=== PATIENT | male | born 1950 | race Caucasian/White ===

== ENCOUNTER 2018-12-18 14:22 | Inpatient (IN) | payer OTHER ==
[2018-12-18 14:40] VITALS: BMI 28.5
[2018-12-18] MEDS ORDERED: ACETAMINOPHEN 1000 MG/100 ML VIAL (NON FORMULARY) IVPB ONE (14:56)
[2018-12-18] MEDS ORDERED: ACETAMINOPHEN INJECTION 100 ML IVPB ONE (15:11)
--- NOTE | 2018-12-18 15:27 | PDOC ---
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 His GLF was preceded by lightheadedness as reported by the group of witnesses to the patient's brother when he arrived on scene about 20 minutes later. The brother explains that the patient was at [facility] having his normal speech therapy appointment, and as he was leaving he had the fall. The patient denies hitting his head or losing consciousness. He has never fainted before. He has never had a similar episode before. The brother notes that while the patient was laying flat on his back on the ground on his arrival on scene, he was answering questions and otherwise acting normally. The patient and brother deny any recent f/c/n/v/d/c, new focal n/t/w, SCHWARTZ, neck pain, chest pain, palpitations, or other recent symptoms. He is no longer lightheaded or dizzy. He normally ambulated with a 4-point cane or walker , and occasionally uses a wheelchair. Past History - Past Medical History Allergies/Adverse Reactions: Allergies Allergy/AdvReac Type Severity Reaction Status Date / Time No Known Allergies Allergy Verified 12/18/18 14:29 Home Medications: Ambulatory Orders Escitalopram Oxalate [Lexapro -] 10 mg PO HS 10/21/11 Metformin HCl [Glucophage] 1,000 mg PO BID 10/21/11 levETIRAcetam [Keppra Oral Solution -] 500 mg PO BID 10/21/11 Aspirin 81 mg PO DAILY 04/11/14 Atorvastatin Calcium 40 mg PO HS 12/18/18 Ferrous Sulfate [Iron] 325 mg PO ASDIR 12/18/18 Acetaminophen [Tylenol .Regular Strength -] 650 mg PO Q4H PRN tablet 12/22/18 Insulin Sliding Scale [Novolog Vial Sliding Scale -] 1 vial SQ ACHS units 12/22 Anemia: Yes Asthma: No Cancer: No Cardiac Disorders: No CVA: Yes (STROKE-RIGHT SIDED WEAKNESS) COPD: No CHF: No Dementia: No Diabetes: Yes (NIDDM) GI Disorders: Yes (ACID REFLUX BARRETTS ESOPHOGUS HIATAL HERNIA) Disorders: Yes (KIDNEY STONE) HTN: No Hypercholesterolemia: Yes Liver Disease: No Seizures: Yes (NO RECENT ATTACK) Thyroid Disease: No - Surgical History Abdominal Surgery: No Appendectomy: No Cardiac Surgery: No Cholecystectomy: No Lung Surgery: No Neurologic Surgery: No Orthopedic Surgery: No - Suicide/Smoking/Psychosocial Hx Smoking History: Unknown if ever smoked Have you smoked in the past 12 months: No Hx Alcohol Use: Yes (SOCIAL) Drug/Substance Use Hx: No Hx Substance Use Treatment: No Review of Systems - Review of Systems Able to Perform ROS?: Yes Comments:: 12/18/18 15:11 GEN: no fever, chills, malaise, generalized weakness, or weight change HEENT: no ear pain, sore throat, vision change, or eye pain CV: lightheadedness, no chest pain, palpitations, syncope, or edema RESP: no cough, wheezing, or SOB GI: no abdominal pain, nausea, vomiting, diarrhea, constipation, or white/black/ bloody stool : no dysuria, hematuria, incontinence, retention, bleeding, or discharge MSK: right elbow/wrist/forearm/arm/hip/thigh/knee pain, no neck/back pain, no new muscle weakness NEURO: no headache, numbness, tingling, or focal weakness PSYCH: no substance use, no behavior change SKIN: no jaundice, no rash ROS otherwise negative except as noted in HPI *Physical Exam - Vital Signs Last Vital Signs Temp Pulse Resp BP Pulse Ox 98.5 F 76 19 143/95 98 12/18/18 14:31 12/18/18 14:31 12/18/18 14:31 12/18/18 14:31 12/18/18 14:31 - Physical Exam Comments: 12/18/18 15:11 GENERAL: a bit uncomfortable but nontoxic-appearing, A/Ox4, no distress, answers questions appropriately, brother at bedside aids in conversation and providing medical history HEENT: PERRLA, EOMI, moist mucous membranes, mild facial droop stated to be old per baseline NECK/BACK: no midline ttp, no spinal stepoff or deformity, no hematoma, full ROM , neck supple CARDIOVASCULAR: regular rate/rhythm, normal S1S2, no MGR, strong peripheral pulses, capillary refill <2 seconds, extremities wwp, no edema LUNGS/RESPIRATORY: no respiratory distress, CTAB GI/ABDOMEN: symmetric [id number], normoactive BS, soft, no ttp, no midline pulsatile masses : no CVA tenderness EXTREMITIES: RLE slightly shortened and slightly externally rotated compared to contralateral side, pain on passive ROM right elbow, mild right elbow edema, tenderness to palpation diffusely to elbow with lateral>medial aspect, also mild ttp right wrist and pain with ROM, RUE chronic atrophy SKIN: warm and dry, no pallor, no jaundice, no rash, no bruising, no skin breakdown, no cuts, no lesions NEUROLOGICAL: GCS 15, 5/5 strength proximally and distally to LUE and LLE, strength 4/5 RLE and 3/5 RUE stated all per baseline Heart Score/ECG Review #1 12/18/18 16:55 Sinus rhythm, rate 65, with normal axis and intervals, no is chemic ST-T changes ED Treatment Course - LABORATORY CBC & Chemistry Diagram: 12/20/18 07:50 12/20/18 07:50 - RADIOLOGY Radiology Studies Ordered: Category Date Time Status HEAD CT WITHOUT CONTRAST [CT] Stat CT Scan 12/18/18 14:56 Ordered CHEST PA & LAT [RAD] Stat Radiology 12/18/18 14:56 Ordered ELBOW-RIGHT [RAD] Stat Radiology 12/18/18 14:56 Ordered HIP & PELVIS-RIGHT [RAD] Stat Radiology 12/18/18 14:56 Ordered KNEE 2 POS-LEFT [RAD] Stat Radiology 12/18/18 14:56 Ordered SHOULDER-RIGHT [RAD] Stat Radiology 12/18/18 14:56 Ordered WRIST W/HAND-RIGHT* [RAD] Stat Radiology 12/18/18 15:05 Ordered Medical Decision Making - Medical Decision Making 12/18/18 15:28 Elderly patient p/w abrupt transient near-LOC with, followed by spontaneous recovery, consistent with presyncope. Also suffered GLF with subsequent elbow, wrist, hip, and knee pain. Initial Vital Signs Temp Pulse Resp BP Pulse Ox 98.5 F 76 19 143/95 98 12/18/18 14:31 12/18/18 14:31 12/18/18 14:31 12/18/18 14:31 12/18/18 14:31 Exam: As noted in Physical Exam section. DDX for RLE pain IBNLT: hip/pelvis fxr, hip dislocation, sprain/strain, contusion, etc. DDX for RUE pain IBNLT: wrist/elbow fxr, dislocation, sprain/strain, contusion, etc. DDX for lightheadedness resulting in GLF IBNLT: reflex (neurocardiogenic e.g. vasovagal; situational e.g. micturition/post-tussive/post-exercise; carotid sinus hypersensitivity), cardiovascular (arrhythmia e.g. sick sinus syndrome, conduction abnormality e.g. SVT/WPW/Brugada/long QT/ventricular dysrhythmia, structural heart disease e.g. valvular disease/HOCM/left atrial myxoma/CT; PE; cardiac tamponade), orthostatic hypotension (volume depletion e.g. hemorrhage/ vomiting/diarrhea/diuretics; drugs e.g. vasodilators/cpzfr-2-pddvwznu/clonidine/ phenothiazines like Haldol; autonomic failure e.g. spinal cord injury/DM neuropathy/Parkinsons), or other causes not true syncope d/t subsequent neuro deficit (TIA/CVA, SAH, seizure, metabolic/electrolyte derangement e.g. DM/DKA tend to cause gradual slide into unconsciousness), , infection/sepsis/ vitals abnormalities, etc. W/U ordered: XR right hip/pelvis/knee/elbow/wrist, CBCD CMP Cardiac Panel Coags T&S EKG, HCT without contrast, CSCT TX ordered: IV Ofirmev. NPO until further notice. EKG: Reviewed; results as noted in ECG Review section. CXR: Nothing acute CT Head: Nothing acute CT C-Spine: Nothing acute; bone spur at C3-4 XR right hand/wrist: Clenched hand limits study but nothing obvious acute. XR right elbow: proximal ulnar fracture and STS XR right shoulder: Nothing acute XR right hip/pelvis: Nothinc acute XR right knee: Nothing acute Laboratory Tests 12/18/18 12/18/18 12/18/18 15:14 15:14 15:14 WBC 7.6 RBC 3.72 L Hgb 11.8 Hct 35.8 MCV 96.1 H MCH 31.8 MCHC 33.0 RDW 13.6 Plt Count 272 MPV 7.8 Absolute Neuts (auto) 5.4 Neutrophils % 70.5 Lymphocytes % 16.0 Monocytes % 10.3 H Eosinophils % 2.7 Basophils % 0.5 Nucleated RBC % 0 PT with INR 12.90 INR 1.09 Sodium 138 Potassium 4.1 Chloride 106 Carbon Dioxide 25 Anion Gap 7 L BUN 12 Creatinine 0.9 Est GFR (CKD-EPI)AfAm 101.36 Est GFR (CKD-EPI)NonAf 87.45 Random Glucose 216 H Calcium 8.3 L Magnesium 2.0 Total Bilirubin 0.8 AST 11 L ALT 15 Alkaline Phosphatase 67 Creatine Kinase 60 Troponin I < 0.02 Total Protein 6.5 Albumin 3.4 Blood Type Antibody Screen 12/18/18 15:14 WBC RBC Hgb Hct MCV MCH MCHC RDW Plt Count MPV Absolute Neuts (auto) Neutrophils % Lymphocytes % Monocytes % Eosinophils % Basophils % Nucleated RBC % PT with INR INR Sodium Potassium Chloride Carbon Dioxide Anion Gap BUN Creatinine Est GFR (CKD-EPI)AfAm Est GFR (CKD-EPI)NonAf Random Glucose Calcium Magnesium Total Bilirubin AST ALT Alkaline Phosphatase Creatine Kinase Troponin I Total Protein Albumin Blood Type A NEGATIVE Antibody Screen Negative Pt is at high risk given his comorbidities. The Pt is unsafe for discharge at this time. They require further hospital observation, workup, and treatment. I have spoken with Dr. Diaz who requests orthostatic vitals; these are being done now. I have spoken with Ortho ETTA Santiago who requests posterior splint; she and Dr. Wiseman will see him tomorrow. Consult order placed to Ortho. *DC/Admit/Observation/Transfer Diagnosis at time of Disposition: Pre-syncope, Fall from ground level Ulnar fracture Qualifiers: Encounter type: initial encounter Ulna location: proximal ulna Fracture type: closed Fracture morphology: unspecified fracture morphology Laterality: right Qualified Code(s): S52.001A - Unspecified fracture of upper end of right ulna, initial encounter for closed fracture - Discharge Dispostion Condition at time of disposition: Guarded Decision to Admit order: Yes - Referrals - Patient Instructions - Post Discharge Activity
--- NOTE | 2018-12-18 15:41 | PDOC ---
Documentation entered by Obdulia Gerard SCRIBE, acting as scribe for Carito Danielle DO. Carito Danielle DO: This documentation has been prepared by the Moustapha archuleta Nirvannie, SCRIBE, under my direction and personally reviewed by me in its entirety. I confirm that the documentation accurately reflects all work, treatment, procedures, and medical decision making performed by me. Attending Attestation - Resident Resident Name: PedrazaNicole - ED Attending Attestation I have performed the following: I have examined & evaluated the patient, The case was reviewed & discussed with the resident, I agree w/resident's findings & plan - HPI HPI: 12/18/18 15:58 The patient is a 68 year old male, with a significant past medical history of CVA and seizures (1x, on Keppra), who presents to the emergency department s/p episode of presyncope and fall with right sided pain. As per patients brother at bedside, he was at speech therapy yesterday at which time he fell, hurting his right side and hitting his head. Per brother, the facility noted him to be dizzy prior to the fall and upon his arrival the patient was diaphoretic. Patient notes decreased ROM secondary to pain with both active and passive motions. History is limited secondary to patient prior CVA deficits (can only answer yes/no) thus was obtained via brother at bedside. Allergies: NKDA Primary Care Physician: Dr. Wang - Physicial Exam PE: 12/18/18 15:57 Constitutional: Awake, alert, oriented. No acute distress. Head: Normocephalic. Atraumatic Eyes: PERRL. EOMI. Conjunctivae are not pale. ENT: Mucous membranes are moist and intact. Posterior pharynx without exudates or erythema. Uvula midline. Neck: Supple. Full ROM. No lymphadenopathy. Cardiovascular: Regular rate. Regular rhythm. S1, S2 regular. Distal pulses are 2+ and symmetric. Pulmonary/Chest: No evidence of respiratory distress. Clear to auscultation bilaterally No wheezing, rales or rhonchi. Abdominal: Soft and non-distended. There is no tenderness. No rebound, guarding or rigidity. No organomegaly. No palpable masses. Good bowel sounds. Back: No CVA tenderness. Musculoskeletal: No edema. No cyanosis. No clubbing. No calf tenderness. Radial/pedal pulses are intact and 2+ bilaterally Skin: Skin is warm and dry. No petechiae. No purpura. Neurological: At baseline: +Mild responsive an expressive aphasia and slurred speech. RUE strength 2/5. RLE strength 3/5. Right sided facial droop. Alert and oriented to person, place, and time. Cranial nerves II-XII are grossly intact. Strength is grossly symmetric. No sensory deficits. Psychiatric: Good eye contact. Normal interaction, affect and behavior. - Medical Decision Making 12/18/18 15:36 I, Dr. Carito Danielle, DO, attest that this document has been prepared under my direction and personally reviewed by me in its entirety. I further attest, that it accurately reflects all work, treatment, procedures and medical decision -making performed by me. 12/18/18 15:36 a/p: 68yo male with hx of cva in the past, residual r sided weakness with an episode of dizziness and near syncope yesterday -pt was walking out of speech therapy at [place] when he fell, landing on his back and R side -pt with R elbow pain and R hip pain -pt did hit his head, no loc -pt with speech difficulty since his CVA -per the brother, he was clammy and cool after he fell. pt denies davis. no neck or back pain -pt declined evaluation last night and came home, taking tyelnol for pain -pt walks with a 4point cane, but per the bother only on long walks -pt denies cp/sob prior to fall or since the fall -will send labs, ekg, cxr, head ct, elbow xray, pelvis/hip xray 12/18/18 16:18 no acute changes on the head or c spine ct Heart Score/ECG Review - ECG Intrepretation Comment:: 12/18/18 15:35 sinus at 65, lvh, nl axis, t wave inversions III, no acute st/t wave findings
[2018-12-18 16:00] LABS: BASO % 0.5 % (0-2.0); EOS % 2.7 % (0-4.5); HEMATOCRIT 35.8 % (35.4-49); HEMOGLOBIN 11.8 GM/dL (11.7-16.9); MCH 31.8 pg (25.7-33.7); MEAN CELL VOLUME 96.1 fl (80-96); MEAN PLT VOLUME 7.8 fl (7.5-11.1); MONO % 10.3 % (3.8-10.2); NEUT % 70.5 % (42.8-82.8); PLATELET COUNT 272 K/MM3 (134-434); RBC 3.72 M/mm3 (4.00-5.60); RDW 13.6 % (11.9-15.9); WHITE BLOOD COUNT 7.6 K/mm3 (4.0-10.0)
[2018-12-18 16:15] LABS: INR 1.09 (0.83-1.09); PROTHROMBIN TIME (PATIENT) 12.9 SEC (9.7-13.0)
[2018-12-18 16:32] LABS: ALBUMIN 3.4 g/dl (3.4-5.0); ALK PHOS 67 U/L (45-117); ANION GAP 7 MMOL/L (8-16); BILIRUBIN,TOTAL 0.8 mg/dL (0.2-1); BLOOD UREA NITROGEN 12 mg/dL (7-18); CALCIUM 8.3 mg/dL (8.5-10.1); CHLORIDE 106 mmol/L (98-107); CO2 25 mmol/L (21-32); CREATININE 0.9 mg/dL (0.55-1.3); GLUCOSE,RANDOM 216 mg/dL (74-106); POTASSIUM 4.1 mmol/L (3.5-5.1); SGOT/AST 11 U/L (15-37); SGPT/ALT 15 U/L (13-61); SODIUM 138 mmol/L (136-145); TOT PROT 6.5 g/dl (6.4-8.2)
--- NOTE | 2018-12-18 18:16 | HP ---
Admitting History and Physical - Primary Care Physician PCP: Stefania Wang - Admission Chief Complaint: Fell History of Present Illness: Mr Curtis is a very pleasant 68 year old male who comes in with a presyncopal event and fall. He is aphasic and can answer yes/no so majority of the history comes from his brother at bedside. He states that Mr Curtis often becomes dehydrated because he does not like to drink fluids as to prevent excessive urination. Wednesday they were golfing and yesterday Mr Curtis went to [place] and had speech therapy. After leaving he was walking and became lightheaded and fell. He denies LOC or head trauma. He did fall and hit his R elbow. He was evaluated by the staff and found to have low blood pressure. At that time he felt he was well enough to go home so declined ambulance or hospital evaluation. He went to sleep and this morning asked to come to the hospital because he was having R arm pain. He says yes to having R arm pain and indicates his elbow. Otherwise he is without complaint. He denies fevers, chills , current lightheadedness/dizziness, change in vision (has L eye blindness), chest pain, shortness of breath, nausea, vomiting, abdominal pain, diarrhea, constipation, difficulty or pain on urination, or swelling. History Source: Patient, Family Member Limitations to Obtaining History: Clinical Condition - Past Medical History RESEARCH TECH: Yes: CVA (2006- Left middle cerebral artery occulsion) Musculoskeletal: Yes: Other (Right-sided weakness in upper and lower extremity) Endocrine: Yes: Diabetes Mellitus - Past Surgical History Past Surgical History: Yes: None - Smoking History Smoking history: Never smoked Have you smoked in the past 12 months: No - Alcohol/Substance Use Hx Alcohol Use: Yes (SOCIAL) - Social History Usual Living Arrangement: Yes: Other (with family) ADL: Family Assistance History of Recent Travel: No Home Medications - Allergies Allergies/Adverse Reactions: Allergies Allergy/AdvReac Type Severity Reaction Status Date / Time No Known Allergies Allergy Verified 12/18/18 14:29 - Home Medications Home Medications: Ambulatory Orders Escitalopram Oxalate [Lexapro -] 20 mg PO HS 10/21/11 Metformin HCl [Glucophage] 1,000 mg PO BID 10/21/11 levETIRAcetam [Keppra Oral Solution -] 500 mg PO BID 10/21/11 Aspirin 81 mg PO DAILY 04/11/14 Atorvastatin Calcium 40 mg PO HS 12/18/18 Ferrous Sulfate [Iron] 325 mg PO ASDIR 12/18/18 Family Disease History - Family Disease History Family Disease History: CA: Mother (pancreatic), Brother (colon) Review of Systems Findings/Remarks: Full review of systems obtained, as per HPI and otherwise negative Physical Examination Vital Signs: Vital Signs Temperature 36.9 C 12/18/18 14:31 Pulse Rate 65 12/18/18 17:50 Respiratory Rate 19 12/18/18 14:31 Blood Pressure 146/69 12/18/18 17:50 O2 Sat by Pulse Oximetry (%) 98 12/18/18 14:31 Constitutional: Yes: Well Nourished, No Distress, Calm Eyes: Yes: Conjunctiva Clear HENT: Yes: Atraumatic, Normocephalic Cardiovascular: Yes: Regular Rate and Rhythm. No: Gallop, Murmur, Rub Respiratory: Yes: Regular, CTA Bilaterally. No: Rales, Rhonchi, Wheezes Gastrointestinal: Yes: Normal Bowel Sounds, Soft. No: Distention, Tenderness Extremities: Yes: WNL Edema: No Labs: CBC, BMP 12/18/18 15:14 12/18/18 15:14 Imaging - Results Chest X-ray: Image Reviewed X-ray: Image Reviewed Cat Scan: Report Reviewed Problem List - Problems (1) Pre-syncope Assessment/Plan: -with fall -most likely secondary to dehydration -admit to telemetry observation -hydration with IVF -orthostatic vital signs -cardiology consult -ECHO and carotid dopplers -PT consult -plan for discharge tomorrow if improved Code(s): R55 - SYNCOPE AND COLLAPSE (2) Ulnar fracture Assessment/Plan: -orthopedic surgery consulted -await recommendations Code(s): S52.209A - UNSP FRACTURE OF SHAFT OF UNSP ULNA, INIT FOR CLOS FX Qualifiers: Encounter type: initial encounter Ulna location: proximal ulna Fracture type: closed Fracture morphology: unspecified fracture morphology Laterality : right Qualified Code(s): S52.001A - Unspecified fracture of upper end of right ulna, initial encounter for closed fracture (3) Fall from ground level Assessment/Plan: -secondary to presyncope -as above Code(s): W18.30XA - FALL ON SAME LEVEL, UNSPECIFIED, INITIAL ENCOUNTER (4) Diabetes Assessment/Plan: -continue metformin -diabetic diet -FSBS and SSI Code(s): E11.9 - TYPE 2 DIABETES MELLITUS WITHOUT COMPLICATIONS (5) CVA (cerebral vascular accident) Assessment/Plan: -history of with aphasia -deficit unchanged -CT scan reviewed -continue aspirin and keppra Code(s): I63.9 - CEREBRAL INFARCTION, UNSPECIFIED (6) Carotid artery stenosis Assessment/Plan: -100% occlusion per brother at bedside -will obtain carotid ultrasound for syncope Code(s): I65.29 - OCCLUSION AND STENOSIS OF UNSPECIFIED CAROTID ARTERY Qualifiers: Laterality: left Qualified Code(s): I65.22 - Occlusion and stenosis of left carotid artery
[2018-12-18] MEDS: SODIUM CHLORIDE 1,000 ML IV SCH (18:54)
[2018-12-18] MEDS: INSULIN SLIDING SCALE (NOVOLOG) 1 VIAL SQ SCH (23:40)
[2018-12-19] MEDS ORDERED: metFORMIN HCL 500 MG TABLET (FP) ONE (06:15)
[2018-12-19] MEDS ORDERED: INSULIN (NOVOLOG) ASPART 100 UNITS/ML 10ML VIAL ONE ×2 (06:15→06:17)
[2018-12-19] MEDS: INSULIN SLIDING SCALE (NOVOLOG) 1 VIAL SQ SCH ×4 (06:25→21:22)
[2018-12-19] MEDS: metFORMIN HCL 500 MG TABLET (FP) PO SCH ×2 (06:26→17:29)
[2018-12-19 06:59] LABS: BASO % 0.8 % (0-2.0); EOS % 5.5 % (0-4.5); HEMOGLOBIN 11.2 GM/dL (11.7-16.9); MCH 32.3 pg (25.7-33.7); MEAN PLT VOLUME 7.6 fl (7.5-11.1); MONO % 9.2 % (3.8-10.2); NEUT % 67.5 % (42.8-82.8); PLATELET COUNT 266 K/MM3 (134-434); RBC 3.47 M/mm3 (4.00-5.60); RDW 13.6 % (11.9-15.9); WHITE BLOOD COUNT 7.8 K/mm3 (4.0-10.0)
[2018-12-19 07:29] LABS: CALCIUM 7.9 mg/dL (8.5-10.1); CREATININE 0.8 mg/dL (0.55-1.3); MAGNESIUM 1.8 mg/dL (1.8-2.4); PHOSPHOROUS 3.2 mg/dL (2.5-4.9); POTASSIUM 3.8 mmol/L (3.5-5.1)
[2018-12-19] MEDS ORDERED: FERROUS SO4 325 MG TABLET (FP) ONE (07:47)
[2018-12-19] MEDS: FERROUS SO4 325 MG TABLET (FP) PO SCH ×2 (07:57→17:29)
--- NOTE | 2018-12-19 09:17 | CON.CARD ---
Consult Consult Specialty:: cardio - History of Present Illness Chief Complaint: fall History of Present Illness: 68 M with presyncope and fall. pt severely aphasic (can answer yes and no) sec to prior CVA--historyprovided by brother and obtained mostly from him. pt recalls feeling dizzy/LH and falling in hallway outside of speech therapy office at [facility] [place]. he does admit to feeling hot in body at time of sx's. denies LOC. also admits to feeling weakness in R leg at the [place]. brother was not present--arrived 15-20 min later and found brother laying on floor with staff attending to him. they checked bp and told him was low, doesn't know the reading. pt was conscious and appeared NOT to be confused or disoriented. no sz-like activity noted (h/o seizure in past). brother suspects pt wa dehydrated because played golf outside the day before, then went out with friends for dinner, doesn't take much po fluids in. no etoh at all. He hit his R elbow when fell and came to hospital the next day (12/18) b/c of elbow pain. currently feels well denies cp, sob, palpitations brother states pt has known carotid artery occlusion PMH: cva carotid occlusion - Past Medical History PHARMACEUTICAL ANALYST: Yes: CVA (2007- Left middle cerebral artery occulsion) Musculoskeletal: Yes: Other (Right-sided weakness in upper and lower extremity) Endocrine: Yes: Diabetes Mellitus - Past Surgical History Past Surgical History: Yes: None - Alcohol/Substance Use Hx Alcohol Use: Yes (SOCIAL) - Smoking History Smoking history: Never smoked Have you smoked in the past 12 months: No - Social History ADL: Family Assistance History of Recent Travel: No Home Medications - Allergies Allergies/Adverse Reactions: Allergies Allergy/AdvReac Type Severity Reaction Status Date / Time No Known Allergies Allergy Verified 12/18/18 14:29 - Home Medications Home Medications: Ambulatory Orders Escitalopram Oxalate [Lexapro -] 10 mg PO HS 10/21/11 Metformin HCl [Glucophage] 1,000 mg PO BID 10/21/11 levETIRAcetam [Keppra Oral Solution -] 500 mg PO BID 10/21/11 Aspirin 81 mg PO DAILY 04/11/14 Atorvastatin Calcium 40 mg PO HS 12/18/18 Ferrous Sulfate [Iron] 325 mg PO ASDIR 12/18/18 Family Disease History - Family Disease History Family Disease History: CA: Mother (pancreatic), Brother (colon) Review of Systems - Review of Systems Constitutional: denies: Chills, Fever Eyes: denies: Eye Pain HENT: denies: Nasal Congestion Neck: denies: Stiffness Cardiovascular: denies: Palpitations Respiratory: denies: Orthopnea, PND Gastrointestinal: denies: Diarrhea, Rectal Bleeding Genitourinary: denies: Burning, Hematuria Musculoskeletal: denies: Muscle Pain Integumentary: denies: Rash Neurological: denies: Numbness, Seizure, Syncope Endocrine: denies: Excessive Sweating Hematology/Lymphatic: denies: Excessive Bleeding Vital Signs: Vital Signs Temperature 98.2 F 12/19/18 09:00 Pulse Rate 82 12/19/18 09:00 Respiratory Rate 16 12/19/18 09:00 Blood Pressure 142/78 12/19/18 09:00 O2 Sat by Pulse Oximetry (%) 94 L 12/19/18 09:00 Constitutional: Yes: Well Nourished, No Distress Eyes: No: Sclera Icterus HENT: No: Nasal Congestion Neck: No: Decreased ROM Respiratory: Yes: CTA Bilaterally. No: Accessory Muscle Use, Rales, Wheezes Gastrointestinal: Yes: Normal Bowel Sounds. No: Distention, Hepatomegaly, Palpable Mass, Tenderness Cardiovascular: Yes: Regular Rate and Rhythm JVD: No Carotid Bruit: No PMI: Non-Displaced Heart Sounds: Yes: S1, S2. No: Gallop Murmur: No: Systolic Murmur, Diastolic Murmur Musculoskeletal: Yes: Other (No kyphosis) Extremities: No: Cold, Cyanosis Edema: No Peripheral Pulses: 2+ Left Carotid, 2+ Right Carotid, 2+ Left Doralis Pedis, 2+ Right Dorsalis Pedis Integumentary: No: Jaundice Neurological: Yes: Alert. No: Seizure Psychiatric: No: Agitated - Other Data Labs, Other Data: CBC, BMP 12/19/18 05:55 12/19/18 05:55 INR, PTT INR 1.09 (0.83-1.09) 12/18/18 15:14 Troponin, BNP 12/18/18 15:14 Troponin I < 0.02 Troponin, BNP 12/18/18 15:14 Troponin I < 0.02 Laboratory Tests 12/18/18 12/19/18 12/19/18 15:14 05:55 05:55 WBC 7.8 Hgb 11.2 L Plt Count 266 Sodium 139 Potassium 3.8 Carbon Dioxide 24 BUN 11 Creatinine 0.8 AST 11 L ALT 15 Creatine Kinase 60 Troponin I < 0.02 Assessment/Plan MRI/MRA brain 2017: chronic L MCA infarct with encephalomalacia. no flow in L ICA/MCA/production maintenance mechanic communicating artery Carotids here: occluded LICA CT head here: old L MCA infarct, no acute pathology ECG: NSR, normal axis. early R/S transition, inc RBBB. no path q's, no ST-T (no signif change vs prior) CXR: clear lungs/pleura tele: NSR, no events presyncope with fall/injury: -dx'd ulnar fracture here -occurred in upright position when leaving speech therapist office, reportedly low bp noted by staff there. + prodrome of hot/flushing--suspect vasovagal episode predisposed by relative intravasc vol depletion. -not clinically dehydrated on electrolytes here. -normotensive here--check orthostatic BPs -tele benign in ER--cont monitoring x 24 hrs -check echo -await neuro input re: c/o R leg weakness known carotid occlusion (left), prior L MCA stroke: -no acute pathology on imaging here -cont prior home sec prevention regimen (aspirin, statin) -per hospitalist
[2018-12-19] MEDS: PANTOPRAZOLE 40 MG TABLET (FP) PO SCH (10:06)
[2018-12-19] MEDS: levETIRAcetam 500 MG/5 ML ORAL SOLUTION (UNIT-DOSE CUPS) PO SCH ×3 (10:06→21:17)
[2018-12-19] MEDS: ASPIRIN 81 MG CHEWABLE TABLETS PO SCH (10:06)
--- NOTE | 2018-12-19 11:16 | EKG ---
Test Reason : Blood Pressure : / mmHG Vent. Rate : 065 BPM Atrial Rate : 065 BPM P-R Int : 190 ms QRS Dur : 106 ms QT Int : 414 ms P-R-T Axes : 034 -03 015 degrees QTc Int : 430 ms NORMAL SINUS RHYTHM MINIMAL VOLTAGE CRITERIA FOR LVH, MAY BE NORMAL VARIANT BORDERLINE ECG WHEN COMPARED WITH ECG OF 27-NOV-2006 07:55, VENT. RATE HAS DECREASED BY 33 BPM Confirmed by BRIE KLINE, ZLEDA ([id number]) on 12/19/2018 11:16:43 AM Referred By: Confirmed By:ZELDA BAIRD MD
--- NOTE | 2018-12-19 12:17 | PN ---
Physical Exam: SUBJECTIVE: Patient seen and examined resting in bed nad. aafebrile hemodynamically stable, no acute events. unable to stand up or walk with pt. denies severe pain, dizziness, palpitations. OBJECTIVE: Vital Signs Period Temp Pulse Resp BP Sys/Rios Pulse Ox Last 24 Hr 97.6 F-99.3 F 61-82 16-20 142-156/69-95 94-98 GENERAL: The patient is awake, alert, in no acute distress. HEAD: Normal with no signs of trauma. EYES: sclera anicteric, conjunctiva clear. No ptosis. ENT: moist mucous membranes. NECK: supple. LUNGS: Breath sounds equal, clear to auscultation bilaterally HEART: Regular rate and rhythm, S1, S2 ABDOMEN: Soft, nontender, nondistended, normoactive bowel sounds, EXTREMITIES: LUE bandaged, painful proximal ulna NEUROLOGICAL: slurred speech, gait not observed. PSYCH: Normal mood, normal affect. SKIN: Warm, dry Laboratory Results - last 24 hr 12/18/18 12/18/18 12/18/18 15:14 15:14 15:14 WBC 7.6 RBC 3.72 L Hgb 11.8 Hct 35.8 MCV 96.1 H MCH 31.8 MCHC 33.0 RDW 13.6 Plt Count 272 MPV 7.8 Absolute Neuts (auto) 5.4 Neutrophils % 70.5 Lymphocytes % 16.0 Monocytes % 10.3 H Eosinophils % 2.7 Basophils % 0.5 Nucleated RBC % 0 PT with INR 12.90 INR 1.09 Sodium 138 Potassium 4.1 Chloride 106 Carbon Dioxide 25 Anion Gap 7 L BUN 12 Creatinine 0.9 Est GFR (CKD-EPI)AfAm 101.36 Est GFR (CKD-EPI)NonAf 87.45 POC Glucometer Random Glucose 216 H Calcium 8.3 L Phosphorus Magnesium 2.0 Total Bilirubin 0.8 AST 11 L ALT 15 Alkaline Phosphatase 67 Creatine Kinase 60 Troponin I < 0.02 Total Protein 6.5 Albumin 3.4 Blood Type Antibody Screen 12/18/18 12/18/18 12/18/18 15:14 19:24 23:37 WBC RBC Hgb Hct MCV MCH MCHC RDW Plt Count MPV Absolute Neuts (auto) Neutrophils % Lymphocytes % Monocytes % Eosinophils % Basophils % Nucleated RBC % PT with INR INR Sodium Potassium Chloride Carbon Dioxide Anion Gap BUN Creatinine Est GFR (CKD-EPI)AfAm Est GFR (CKD-EPI)NonAf POC Glucometer 183 Random Glucose Calcium Phosphorus Magnesium Total Bilirubin AST ALT Alkaline Phosphatase Creatine Kinase Troponin I Total Protein Albumin Blood Type A NEGATIVE A NEGATIVE Antibody Screen Negative 12/19/18 12/19/18 12/19/18 05:53 05:55 05:55 WBC 7.8 RBC 3.47 L Hgb 11.2 L Hct 33.0 L MCV 95.0 MCH 32.3 MCHC 34.0 RDW 13.6 Plt Count 266 MPV 7.6 Absolute Neuts (auto) 5.3 Neutrophils % 67.5 Lymphocytes % 17.0 Monocytes % 9.2 Eosinophils % 5.5 H D Basophils % 0.8 Nucleated RBC % 0 PT with INR INR Sodium 139 Potassium 3.8 Chloride 105 Carbon Dioxide 24 Anion Gap 9 BUN 11 Creatinine 0.8 Est GFR (CKD-EPI)AfAm 106.38 Est GFR (CKD-EPI)NonAf 91.79 POC Glucometer 207 Random Glucose 211 H Calcium 7.9 L Phosphorus 3.2 Magnesium 1.8 Total Bilirubin AST ALT Alkaline Phosphatase Creatine Kinase Troponin I Total Protein Albumin Blood Type Antibody Screen 12/19/18 11:25 WBC RBC Hgb Hct MCV MCH MCHC RDW Plt Count MPV Absolute Neuts (auto) Neutrophils % Lymphocytes % Monocytes % Eosinophils % Basophils % Nucleated RBC % PT with INR INR Sodium Potassium Chloride Carbon Dioxide Anion Gap BUN Creatinine Est GFR (CKD-EPI)AfAm Est GFR (CKD-EPI)NonAf POC Glucometer 188 Random Glucose Calcium Phosphorus Magnesium Total Bilirubin AST ALT Alkaline Phosphatase Creatine Kinase Troponin I Total Protein Albumin Blood Type Antibody Screen Active Medications Generic Name Dose Route Start Last Admin Trade Name Freq PRN Reason Stop Dose Admin Acetaminophen 650 mg 12/18/18 18:08 Tylenol - PO Q4H PRN PAIN Aspirin 81 mg 12/19/18 10:00 12/19/18 10:06 Asa - PO 81 mg DAILY [facility]ILFRIDO Administration Escitalopram Oxalate 20 mg 12/18/18 22:00 12/19/18 00:00 Lexapro - PO 20 mg HS [facility]FRIDO Administration Ferrous Sulfate 325 mg 12/19/18 08:00 12/19/18 07:57 Feosol - PO 325 mg BIDWM [facility] Administration Sodium Chloride 1,000 mls @ 75 mls/hr 12/18/18 18:15 12/18/18 18:54 Normal Saline - IV 75 mls/hr ASDIR WILFRIDO Administration Insulin Aspart 1 vial 12/18/18 22:00 12/19/18 11:52 Novolog Vial Sliding Scale - SQ Not Given ACHS [facility] Protocol Levetiracetam 500 mg 12/18/18 22:00 12/19/18 10:06 Keppra Oral Solution - PO 500 mg BID WILFRIDO Administration Metformin HCl 1,000 mg 12/19/18 07:00 12/19/18 06:26 Glucophage - PO 1,000 mg BIDAC [facility]O Administration Pantoprazole Sodium 40 mg 12/19/18 10:00 12/19/18 10:06 Protonix - PO 40 mg DAILY WILFRIDO Administration ASSESSMENT/PLAN: This is a 68 yo M with PMH of dehydration due to intentional fluid restriction, NIDDM, 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), SZ (11 years ago now on Keppra), presenting with a presyncopal event and fall preceded by flushing, impact on R elbow, found to be hypotensive shortly after Pre syncopal episode with fall R proximal ulnar fracture Unable to walk NIDDM SZ d/o -most likely vasovagal episode aggravated by dehydration -orthostatic vital signs wnl -hydrated with IV NS @ 75 -Carotid duplex shows occluded L ICA consistent with history of 100% occlusion reported by brother -TTE no significan valvular abnormality, ef wnl -cardio consult appreciated -imaging reviewed; f/u ortho eval; tylenol for pain -unable to walk at this time. continue PT -continue metformin -continue aspirin and keppra -med/surg Problem List - Problems (1) Carotid artery stenosis Code(s): I65.29 - OCCLUSION AND STENOSIS OF UNSPECIFIED CAROTID ARTERY Qualifiers: Laterality: left Qualified Code(s): I65.22 - Occlusion and stenosis of left carotid artery (2) Diabetes Code(s): E11.9 - TYPE 2 DIABETES MELLITUS WITHOUT COMPLICATIONS (3) Fall from ground level Code(s): W18.30XA - FALL ON SAME LEVEL, UNSPECIFIED, INITIAL ENCOUNTER (4) Pre-syncope Code(s): R55 - SYNCOPE AND COLLAPSE (5) Ulnar fracture Code(s): S52.209A - UNSP FRACTURE OF SHAFT OF UNSP ULNA, INIT FOR CLOS FX Qualifiers: Encounter type: initial encounter Ulna location: proximal ulna Fracture type: closed Fracture morphology: unspecified fracture morphology Laterality : right Qualified Code(s): S52.001A - Unspecified fracture of upper end of right ulna, initial encounter for closed fracture Visit type - Emergency Visit Emergency Visit: Yes ED Registration Date: 12/19/18 Care time: The patient presented to the Emergency Department on the above date and was hospitalized for further evaluation of their emergent condition. - New Patient This patient is new to me today: Yes Date on this admission: 12/19/18 - Critical Care Critical Care patient: No - Discharge Referral Referred to [facility] Med P.C[facility] No
--- NOTE | 2018-12-19 13:13 | ECHO ---
Name: WILLIAM KARIMI Exam:Adult Echocardiogram Study Date: 12/19/2018 10:37 AM Age: 68 yrs Reason For Study: SYNCOPE Height: 72 in Weight: 210 lb BSA: 2.2 m2 MMode/2D Measurements & Calculations IVSd: 0.93 cm Ao root diam: 3.9 cm LVIDd: 4.6 cm LA dimension: 2.8 cm LVIDs: 2.8 cm LVPWd: 0.97 cm EDV(Teich): 95.6 ml LVOT diam: 2.8 cm ESV(Teich): 30.7 ml Doppler Measurements & Calculations MV E max ray: 57.7 cm/sec Ao V2 max: 109.9 cm/sec MV A max ray: 100.4 cm/sec Ao max P.8 mmHg MV E/A: 0.57 AI P1/2t: 967.6 msec MV dec time: 0.15 sec JEANNIE(V,D): 5.5 cm2 AI max ray: 256.5 cm/sec LV V1 max P.0 mmHg AI max P.3 mmHg LV V1 max: 99.4 cm/sec AI dec slope: 77.7 cm/sec2 PA V2 max: 85.5 cm/sec Med Peak E' Ray: 5.8 cm/sec PA max P.9 mmHg Med E/e': 10.0 Lat Peak E' Ray: 8.4 cm/sec Lat E/e': 6.9 PI Vmax: 124.9 cm/sec Procedure A complete two-dimensional transthoracic echocardiogram was performed (2D, M-mode, Doppler and color flow Doppler). Left Ventricle The left ventricle is normal in size. Left ventricular systolic function is normal. Ejection Fraction = 60- 65%. Grade I diastolic dysfunction, (abnormal relaxation pattern). Ratio E/E'= 10. No regional wall m otion abnormalities noted. Right Ventricle The right ventricle is normal size. The right ventricular systolic function is normal. Atria The left atrial size is normal. Right atrial size is normal. Mitral Valve The mitral valve is normal in structure and function. There is no mitral regurgitation noted. Tricuspid Valve The tricuspid valve is normal in structure and function. No tricuspid regurgitation. Aortic Valve There is mild aortic sclerosis.;. Mild aortic regurgitation. Pulmonic Valve The pulmonic valve is not well visualized. Mild pulmonic valvular regurgitation. Great Vessels Mild aortic root dilatation. Pericardium/Pleura There is no pericardial effusion. Interpretation Summary The left ventricle is normal in size. Left ventricular systolic function is normal. No regional wall motion abnormalities noted. Ejection Fraction = 60-65%. Grade I diastolic dysfunction, (abnormal relaxation pattern). Ratio E/E'= 10 The right ventricular systolic function is normal. The left atrial size is normal. Right atrial size is normal. There is mild aortic sclerosis. Mild aortic regurgitation. Mild pulmonic valvular regurgitation. Mild aortic root dilatation. There is no pericardial effusion. Rakesh Huggins MD 12/19/2018 01:12 PM
--- NOTE | 2018-12-19 17:13 | PN ---
Teaching Attending Note Name of Resident: Nia Rivas ATTENDING PHYSICIAN STATEMENT I saw and evaluated the patient. I reviewed the resident's note and discussed the case with the resident. I agree with the resident's findings and plan as documented. SUBJECTIVE: difficult to obtain but patient responds yes to pain in his arms. Otherwise says thank you but appears comfortable and not in distress OBJECTIVE: Last Vital Signs Temp Pulse Resp BP Pulse Ox 36.8 C 82 16 142/78 94 L 12/19/18 09:00 12/19/18 09:00 12/19/18 09:00 12/19/18 09:00 12/19/18 09:00 Gen: nad Pulm: ctab w/o w/r/r CV: rrr w/o m/r/g Abd: +bs, s/nt/nd Ext: no c/c/e CBC, BMP 12/19/18 05:55 12/19/18 05:55 ASSESSMENT AND PLAN: (1) Pre-syncope Assessment/Plan: -ECHO and carotid ultrasound performed -case d/w cardiology -does not need telemetry, can downgrade -expected to be discharged, however today patient unable to walk -per brother, yesterday stated he was walking and playing golf -unusual to have such a steep decline -will continue PT -neurology consult -will make inpatient as patient is unsafe for discharge if cannot walk Code(s): R55 - SYNCOPE AND COLLAPSE (2) Ulnar fracture Assessment/Plan: -orthopedic surgery consulted -await recommendations Code(s): S52.209A - UNSP FRACTURE OF SHAFT OF UNSP ULNA, INIT FOR CLOS FX Qualifiers: Encounter type: initial encounter Ulna location: proximal ulna Fracture type: closed Fracture morphology: unspecified fracture morphology Laterality : right Qualified Code(s): S52.001A - Unspecified fracture of upper end of right ulna, initial encounter for closed fracture (3) Fall from ground level Assessment/Plan: -secondary to presyncope -as above Code(s): W18.30XA - FALL ON SAME LEVEL, UNSPECIFIED, INITIAL ENCOUNTER (4) Diabetes Assessment/Plan: -continue metformin -diabetic diet -FSBS and SSI Code(s): E11.9 - TYPE 2 DIABETES MELLITUS WITHOUT COMPLICATIONS (5) CVA (cerebral vascular accident) Assessment/Plan: -history of with aphasia -deficit unchanged -CT scan reviewed -continue aspirin and keppra -neurology consulted Code(s): I63.9 - CEREBRAL INFARCTION, UNSPECIFIED (6) Carotid artery stenosis Assessment/Plan: -100% occlusion per brother at bedside -seen on carotid ultrasound Code(s): I65.29 - OCCLUSION AND STENOSIS OF UNSPECIFIED CAROTID ARTERY Qualifiers: Laterality: left Qualified Code(s): I65.22 - Occlusion and stenosis of left carotid artery Problem List - Problems (1) Pre-syncope Code(s): R55 - SYNCOPE AND COLLAPSE (2) Ulnar fracture Code(s): S52.209A - UNSP FRACTURE OF SHAFT OF UNSP ULNA, INIT FOR CLOS FX Qualifiers: Encounter type: initial encounter Ulna location: proximal ulna Fracture type: closed Fracture morphology: unspecified fracture morphology Laterality : right Qualified Code(s): S52.001A - Unspecified fracture of upper end of right ulna, initial encounter for closed fracture (3) Fall from ground level Code(s): W18.30XA - FALL ON SAME LEVEL, UNSPECIFIED, INITIAL ENCOUNTER (4) Diabetes Code(s): E11.9 - TYPE 2 DIABETES MELLITUS WITHOUT COMPLICATIONS (5) CVA (cerebral vascular accident) Code(s): I63.9 - CEREBRAL INFARCTION, UNSPECIFIED (6) Carotid artery stenosis Code(s): I65.29 - OCCLUSION AND STENOSIS OF UNSPECIFIED CAROTID ARTERY Qualifiers: Laterality: left Qualified Code(s): I65.22 - Occlusion and stenosis of left carotid artery
--- NOTE | 2018-12-19 18:30 | PN ---
Progress Note (short form) - Note Progress Note: 68 yo M with PMHx of CVA in 2006 and seizures who presented to ED s/p presyncopal episode where he fell onto his right elbow. Patient is known to have deficits of right arm and was unable to catch his fall. History obtained from brother at bedside as patient has limited communication secondary to prior CVA deficits, only responding in yes or no answers. Patient in posterior splint at time of evaluation. Last Vital Signs Temp Pulse Resp BP Pulse Ox 98.2 F 82 16 142/78 94 L 12/19/18 09:00 12/19/18 09:00 12/19/18 09:00 12/19/18 09:00 12/19/18 09:00 PE: RUE Placed in posterior splint Tenderness about the olecranon NVI Cap refill intact Abnormal Lab Results 12/19/18 12/19/18 05:55 05:55 RBC 3.47 L Hgb 11.2 L Hct 33.0 L Eosinophils % 5.5 H D Random Glucose 211 H Calcium 7.9 L A: Right olecranon fracture P: ED XR show minimally displaced transverse olecranon fracture Discussed surgical vs nonsurgical options with patient and his brother Pain control Continue posterior splint Will f/u outpatient for repeat XR to check stability of alignment and determine next steps
[2018-12-19] MEDS: ESCITALOPRAM OXALATE 20 MG TABLET (FP) PO SCH ×2 (21:17)
[2018-12-19] MEDS: ACETAMINOPHEN 325 MG TABLET (FP) PO PRN (21:21)
[2018-12-20] MEDS: INSULIN SLIDING SCALE (NOVOLOG) 1 VIAL SQ SCH ×4 (06:09→21:15)
[2018-12-20] MEDS: metFORMIN HCL 500 MG TABLET (FP) PO SCH ×2 (06:14→17:38)
[2018-12-20] MEDS: SODIUM CHLORIDE 1,000 ML IV SCH ×2 (06:23→21:16)
--- NOTE | 2018-12-20 07:59 | PN ---
Physical Exam: SUBJECTIVE: Patient seen and examined resting in bed nad. aafebrile hemodynamically stable, no acute events. unable to stand up or walk with pt. confirms he has pain in RLE especially with weight bearing. denies dizziness, palpitations. OBJECTIVE: Vital Signs Period Temp Pulse Resp BP Sys/Rios Pulse Ox Last 24 Hr 98.2 F-99.0 F 63-82 16-20 142-148/78-86 94-96 GENERAL: The patient is awake, alert, in no acute distress. HEAD: Normal with no signs of trauma. EYES: sclera anicteric, conjunctiva clear. No ptosis. ENT: moist mucous membranes. NECK: supple. LUNGS: Breath sounds equal, clear to auscultation bilaterally HEART: Regular rate and rhythm, S1, S2 ABDOMEN: Soft, nontender, nondistended, normoactive bowel sounds, EXTREMITIES: LUE bandaged, painful proximal ulna NEUROLOGICAL: slurred speech, gait not observed. PSYCH: Normal mood, normal affect. SKIN: Warm, dry Laboratory Results - last 24 hr 12/19/18 12/19/18 12/19/18 11:25 17:27 21:19 POC Glucometer 188 206 151 12/20/18 05:34 POC Glucometer 181 Active Medications Generic Name Dose Route Start Last Admin Trade Name Freq PRN Reason Stop Dose Admin Acetaminophen 650 mg 12/18/18 18:08 12/19/18 21:21 Tylenol - PO 650 mg Q4H PRN Administration PAIN Aspirin 81 mg 12/19/18 10:00 12/19/18 10:06 Asa - PO 81 mg DAILY WILFRIDO Administration Escitalopram Oxalate 20 mg 12/18/18 22:00 12/19/18 21:17 Lexapro - PO 20 mg HS WILFRIDO Administration Ferrous Sulfate 325 mg 12/19/18 08:00 12/19/18 17:29 Feosol - PO 325 mg BIDWM WILFRIDO Administration Sodium Chloride 1,000 mls @ 75 mls/hr 12/18/18 18:15 12/20/18 06:23 Normal Saline - IV 75 mls/hr ASDIR WILFRIDO Administration Insulin Aspart 1 vial 12/18/18 22:00 12/20/18 06:09 Novolog Vial Sliding Scale - SQ Not Given ACHS [facility] Protocol Levetiracetam 500 mg 12/18/18 22:00 12/19/18 21:17 Keppra Oral Solution - PO 500 mg BID WILFRIDO Administration Metformin HCl 1,000 mg 12/19/18 07:00 12/20/18 06:14 Glucophage - PO 1,000 mg BIDAC WILFRIDO Administration Pantoprazole Sodium 40 mg 12/19/18 10:00 12/19/18 10:06 Protonix - PO 40 mg DAILY WILFRIDO Administration ASSESSMENT/PLAN: This is a 68 yo M with PMH of dehydration due to intentional fluid restriction, NIDDM, 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), SZ (11 years ago now on Keppra), presenting with a presyncopal event and fall preceded by flushing, impact on R elbow, found to be hypotensive shortly after Pre syncopal episode with fall R proximal ulnar fracture Unable to walk NIDDM SZ d/o -most likely vasovagal episode aggravated by dehydration -orthostatic vital signs wnl -hydrated with IV NS @ 75 -Carotid duplex shows occluded L ICA consistent with history of 100% occlusion reported by brother -TTE no significan valvular abnormality, ef wnl -cardio consult appreciated -imaging reviewed; tylenol for pain -ortho recommends posterior splint and outpatient f/u with repeat xray to appreciate stability/alignment -unable to walk at this time likley due to pain from fall. continue PT -f/u RLE CT and CT lumbar spine to r/o fracture, nerve impingement -continue metformin -continue aspirin and keppra -neuro consult appreciated: neurologically stable Problem List - Problems (1) Carotid artery stenosis Code(s): I65.29 - OCCLUSION AND STENOSIS OF UNSPECIFIED CAROTID ARTERY Qualifiers: Laterality: left Qualified Code(s): I65.22 - Occlusion and stenosis of left carotid artery (2) Diabetes Code(s): E11.9 - TYPE 2 DIABETES MELLITUS WITHOUT COMPLICATIONS (3) Fall from ground level Code(s): W18.30XA - FALL ON SAME LEVEL, UNSPECIFIED, INITIAL ENCOUNTER (4) Pre-syncope Code(s): R55 - SYNCOPE AND COLLAPSE (5) Ulnar fracture Code(s): S52.209A - UNSP FRACTURE OF SHAFT OF UNSP ULNA, INIT FOR CLOS FX Qualifiers: Encounter type: initial encounter Ulna location: proximal ulna Fracture type: closed Fracture morphology: unspecified fracture morphology Laterality : right Qualified Code(s): S52.001A - Unspecified fracture of upper end of right ulna, initial encounter for closed fracture Visit type - Emergency Visit Emergency Visit: Yes ED Registration Date: 12/19/18 Care time: The patient presented to the Emergency Department on the above date and was hospitalized for further evaluation of their emergent condition. - New Patient This patient is new to me today: No - Critical Care Critical Care patient: No - Discharge Referral Referred to [facility] Med [facility] No
[2018-12-20 08:25] LABS: HEMATOCRIT 33.5 % (35.4-49); HEMOGLOBIN 11.3 GM/dL (11.7-16.9); MCH 32.3 pg (25.7-33.7); MCHC 33.8 g/dl (32.0-35.9); MEAN CELL VOLUME 95.5 fl (80-96); MEAN PLT VOLUME 7.5 fl (7.5-11.1); PLATELET COUNT 261 K/MM3 (134-434); RDW 13.5 % (11.9-15.9); WHITE BLOOD COUNT 7.9 K/mm3 (4.0-10.0)
[2018-12-20] MEDS: FERROUS SO4 325 MG TABLET (FP) PO SCH ×2 (08:27→17:36)
[2018-12-20 08:44] LABS: CALCIUM 8.3 mg/dL (8.5-10.1); CREATININE 0.8 mg/dL (0.55-1.3); POTASSIUM 3.9 mmol/L (3.5-5.1)
--- NOTE | 2018-12-20 09:04 | CONSULT ---
Consult - text type - Consultation Consultation Note: Neurology Chief Complaint: Fell History of Present Illness: 68 year old male who comes in with a presyncopal event and fall. He is aphasic at baseline from prior CVA and mostly responds with yes. Notes, reviewed reportedly patient becomes dehydrated because he does not like to drink fluids as to prevent excessive urination. Wednesday, he and his brother were golfing and day prior to admission he went to [facility] and had speech therapy. After leaving he was walking and became lightheaded and fell. He denies LOC or head trauma. He did fall and hit his R elbow. He was evaluated by the staff and found to have low blood pressure. At that time he felt he was well enough to go home so declined ambulance or hospital evaluation. He went to sleep and this morning asked to come to the hospital because he was having R arm pain. He said yes to having R arm pain and indicated his elbow. He denied fevers, chills, current lightheadedness/dizziness, change in vision (has L eye blindness), chest pain, shortness of breath, nausea, vomiting, abdominal pain, diarrhea, constipation, difficulty or pain on urination, or swelling. He was admitted for further evaluation. CT head completed and demonstrated previous L MCA infarct, consistent with his aphasia. Echo completed and reviewed. Neurologically stable at this time. Getting IV hydration. 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) Musculoskeletal: Yes: Other (Right-sided weakness in upper and lower extremity) Endocrine: Yes: Diabetes Mellitus - Past Surgical History Past Surgical History: Yes: None - Smoking History Smoking history: Never smoked Have you smoked in the past 12 months: No - Alcohol/Substance Use Hx Alcohol Use: Yes (SOCIAL) - Social History Usual Living Arrangement: Yes: Other (with family) ADL: Family Assistance History of Recent Travel: No Home Medications - Allergies Allergies/Adverse Reactions: Allergies Allergy/AdvReac Type Severity Reaction Status Date / Time No Known Allergies Allergy Verified 12/18/18 14:29 - Home Medications Home Medications: Ambulatory Orders Escitalopram Oxalate [Lexapro -] 20 mg PO HS 10/21/11 Metformin HCl [Glucophage] 1,000 mg PO BID 10/21/11 levETIRAcetam [Keppra Oral Solution -] 500 mg PO BID 10/21/11 Aspirin 81 mg PO DAILY 04/11/14 Atorvastatin Calcium 40 mg PO HS 12/18/18 Ferrous Sulfate [Iron] 325 mg PO ASDIR 12/18/18 Family Disease History - Family Disease History Family Disease History: CA: Mother (pancreatic), Brother (colon) Review of Systems Findings/Remarks: Full review of systems obtained, as per HPI and otherwise negative Physical Examination Vital Signs: Vital Signs Temperature 36.9 C 12/18/18 14:31 Pulse Rate 65 12/18/18 17:50 Respiratory Rate 19 12/18/18 14:31 Blood Pressure 146/69 12/18/18 17:50 O2 Sat by Pulse Oximetry (%) 98 12/18/18 14:31 Constitutional: Yes: Well Nourished, No Distress, Calm Eyes: Yes: Conjunctiva Clear HENT: Yes: Atraumatic, Normocephalic Cardiovascular: Yes: Regular Rate and Rhythm. No: Gallop, Murmur, Rub Respiratory: Yes: Regular, CTA Bilaterally. No: Rales, Rhonchi, Wheezes Gastrointestinal: Yes: Normal Bowel Sounds, Soft. No: Distention, Tenderness Extremities: Yes: WNL Edema: No Neuro: Aphasic, RUE and RLE 4//5, sensory intact, gait deferred CBCD WBC 7.9 K/mm3 (4.0-10.0) 12/20/18 07:50 RBC 3.50 M/mm3 (4.00-5.60) L 12/20/18 07:50 Hgb 11.3 GM/dL (11.7-16.9) L 12/20/18 07:50 Hct 33.5 % (35.4-49) L 12/20/18 07:50 MCV 95.5 fl (80-96) 12/20/18 07:50 MCHC 33.8 g/dl (32.0-35.9) 12/20/18 07:50 RDW 13.5 % (11.9-15.9) 12/20/18 07:50 Plt Count 261 K/MM3 (134-434) 12/20/18 07:50 MPV 7.5 fl (7.5-11.1) 12/20/18 07:50 CMP Sodium 138 mmol/L (136-145) 12/20/18 07:50 Potassium 3.9 mmol/L (3.5-5.1) 12/20/18 07:50 Chloride 106 mmol/L (98-107) 12/20/18 07:50 Carbon Dioxide 25 mmol/L (21-32) 12/20/18 07:50 Anion Gap 8 MMOL/L (8-16) 12/20/18 07:50 BUN 14 mg/dL (7-18) 12/20/18 07:50 Creatinine 0.8 mg/dL (0.55-1.3) 12/20/18 07:50 Random Glucose 185 mg/dL (74-106) H 12/20/18 07:50 Calcium 8.3 mg/dL (8.5-10.1) L 12/20/18 07:50 Total Bilirubin 0.8 mg/dL (0.2-1) 12/18/18 15:14 AST 11 U/L (15-37) L 12/18/18 15:14 ALT 15 U/L (13-61) 12/18/18 15:14 Alkaline Phosphatase 67 U/L (45-117) 12/18/18 15:14 Total Protein 6.5 g/dl (6.4-8.2) 12/18/18 15:14 Albumin 3.4 g/dl (3.4-5.0) 12/18/18 15:14 CARDIAC ENZYMES Creatine Kinase 60 U/L (26-308) 12/18/18 15:14 Troponin I < 0.02 ng/ml (0.00-0.05) 12/18/18 15:14 Problem List 68 year old male who comes in with a presyncopal event and fall. He is aphasic at baseline from prior CVA and mostly responds with yes. Notes, reviewed reportedly patient becomes dehydrated because he does not like to drink fluids as to prevent excessive urination. Wednesday, he and his brother were golfing and day prior to admission he went to [facility] and had speech therapy. After leaving he was walking and became lightheaded and fell. He denies LOC or head trauma. He did fall and hit his R elbow. He was evaluated by the staff and found to have low blood pressure. At that time he felt he was well enough to go home so declined ambulance or hospital evaluation. He went to sleep and this morning asked to come to the hospital because he was having R arm pain. He said yes to having R arm pain and indicated his elbow. He denied fevers, chills, current lightheadedness/dizziness, change in vision (has L eye blindness), chest pain, shortness of breath, nausea, vomiting, abdominal pain, diarrhea, constipation, difficulty or pain on urination, or swelling. He was admitted for further evaluation. CT head completed and demonstrated previous L MCA infarct, consistent with his aphasia. Echo completed and reviewed. Neurologically stable at this time. Getting IV hydration. Continue workup/mgmt for syncope. Carotid dopplers pending, previously with occlusion, consider vascular follow up. Orthostatics, hydration. Ortho follow up for ulnar fracture. Monitor glucose, optimize DM, can continue metformin. Can continue ASA 81, no need to change antiplatelet.
[2018-12-20] MEDS: ASPIRIN 81 MG CHEWABLE TABLETS PO SCH (10:11)
[2018-12-20] MEDS: levETIRAcetam 500 MG/5 ML ORAL SOLUTION (UNIT-DOSE CUPS) PO SCH ×2 (10:11→21:14)
[2018-12-20] MEDS: PANTOPRAZOLE 40 MG TABLET (FP) PO SCH (10:11)
[2018-12-20] MEDS ORDERED: INSULIN (NOVOLOG) ASPART 100 UNITS/ML 10ML VIAL ONE ×2 (11:08→21:13)
[2018-12-20] MEDS: ACETAMINOPHEN 325 MG TABLET (FP) PO PRN (14:01)
--- NOTE | 2018-12-20 15:22 | PN ---
Progress Note (short form) - Note Progress Note: s: aphasic, appears comfortable, no overnight events Current Medications Generic Name Dose Route Start Last Admin Trade Name Freq PRN Reason Stop Dose Admin Acetaminophen 650 mg 12/18/18 18:08 12/20/18 14:01 Tylenol - PO 650 mg Q4H PRN Administration PAIN Aspirin 81 mg 12/19/18 10:00 12/20/18 10:11 Asa - PO 81 mg DAILY WILFRIDO Administration Atorvastatin Calcium 40 mg 12/20/18 22:00 Lipitor - PO HS WILFRIDO Escitalopram Oxalate 20 mg 12/18/18 22:00 12/19/18 21:17 Lexapro - PO 20 mg HS WILFRIDO Administration Ferrous Sulfate 325 mg 12/19/18 08:00 12/20/18 08:27 Feosol - PO 325 mg BIDWM WILFRIDO Administration Sodium Chloride 1,000 mls @ 75 mls/hr 12/18/18 18:15 12/20/18 06:23 Normal Saline - IV 75 mls/hr ASDIR WILFRIDO Administration Insulin Aspart 1 vial 12/18/18 22:00 12/20/18 11:13 Novolog Vial Sliding Scale - SQ 4 units ACHS WILFRIDO Administration Protocol Levetiracetam 500 mg 12/18/18 22:00 12/20/18 10:11 Keppra Oral Solution - PO 500 mg BID WILFRIDO Administration Metformin HCl 1,000 mg 12/19/18 07:00 12/20/18 06:14 Glucophage - PO 1,000 mg BIDAC WILFRIDO Administration Pantoprazole Sodium 40 mg 12/19/18 10:00 12/20/18 10:11 Protonix - PO 40 mg DAILY WILFRIDO Administration Vital Signs Period Temp Pulse Resp BP Sys/Rios Pulse Ox Last 24 Hr 97.6 F-99.0 F 63-80 17-20 116-148/69-86 94-96 Constitutional: Yes: Well Nourished, No Distress Eyes: No: Sclera Icterus Respiratory: Yes: CTA Bilaterally. No: Accessory Muscle Use, Rales, Wheezes Gastrointestinal: Yes: Normal Bowel Sounds. No: Distention, Hepatomegaly, Palpable Mass, Tenderness Cardiovascular: Yes: Regular Rate and Rhythm JVD: No Heart Sounds: Yes: S1, S2. No: Gallop Murmur: No: Systolic Murmur, Diastolic Murmur Extremities: No: Cold, Cyanosis Edema: No Integumentary: No: Jaundice diaphoresis Neurological: Yes: Alert. No: Seizure Psychiatric: No: Agitated - Other Data Labs, Other Data: CBC, BMP 12/20/18 07:50 12/20/18 07:50 Assessment/Plan MRI/MRA brain 2017: chronic L MCA infarct with encephalomalacia. 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 early R/S transition, inc RBBB. no path q's, no ST-T (no signif change vs prior) CXR: clear lungs/pleura echo 12/2018: nl lv/rv, mild ar, mild pr, mild ao root dil presyncope with fall/injury: -dx'd ulnar fracture here -occurred in upright position when leaving speech therapist office, reportedly low bp noted by staff there. + prodrome of hot/flushing--suspect vasovagal episode predisposed by relative intravasc vol depletion. -not clinically dehydrated on electrolytes here. -normotensive here -tele and echo unremarkable here -neuro following known carotid occlusion (left), prior L MCA stroke: -no acute pathology on imaging here -cont prior home sec prevention regimen (aspirin, statin) -per hospitalist
--- NOTE | 2018-12-20 16:49 | PN ---
Teaching Attending Note Name of Resident: Nia Rivas ATTENDING PHYSICIAN STATEMENT I saw and evaluated the patient. I reviewed the resident's note and discussed the case with the resident. I agree with the resident's findings and plan as documented. SUBJECTIVE: patient pleasant but cannot obtain subjective. Brother at bedside, very persuaded that lipitor is cause of weakness OBJECTIVE: Last Vital Signs Temp Pulse Resp BP Pulse Ox 36.4 C 71 17 116/69 96 12/20/18 14:00 12/20/18 14:00 12/20/18 14:00 12/20/18 14:00 12/19/18 23:08 Gen: nad Pulm: ctab w/o w/r/r CV: rrr w/o m/r/g Abd: +bs, s/nt/nd Ext: no c/c/e, pain with palpation of R thigh CBC, BMP 12/20/18 07:50 12/20/18 07:50 ASSESSMENT AND PLAN: (1) Pre-syncope Assessment/Plan: -? if pre-syncope or fall -work up negative -appreciate cardiology assistance Code(s): R55 - SYNCOPE AND COLLAPSE (2) Ulnar fracture Assessment/Plan: -orthopedic surgery consulted -conservative management at this time Code(s): S52.209A - UNSP FRACTURE OF SHAFT OF UNSP ULNA, INIT FOR CLOS FX Qualifiers: Encounter type: initial encounter Ulna location: proximal ulna Fracture type: closed Fracture morphology: unspecified fracture morphology Laterality : right Qualified Code(s): S52.001A - Unspecified fracture of upper end of right ulna, initial encounter for closed fracture (3) Fall from ground level Assessment/Plan: -? if mechanical -now patient with difficulty walking secondary to pain -will obtain CT scan of lumbar spine and RLE -continue PT -brother convinced that lipitor is contributing -explained that it is a possibility but normally do not see ACUTE weakness from lipitor -also cpk and lfts are normal -risk of stopping lipitor outweigh benefit of it possibly contributing unless evidence is found to the contrary Code(s): W18.30XA - FALL ON SAME LEVEL, UNSPECIFIED, INITIAL ENCOUNTER (4) Diabetes Assessment/Plan: -continue metformin -diabetic diet -FSBS and SSI Code(s): E11.9 - TYPE 2 DIABETES MELLITUS WITHOUT COMPLICATIONS (5) CVA (cerebral vascular accident) Assessment/Plan: -history of with aphasia -deficit unchanged -CT scan reviewed -continue aspirin and keppra -case d/w Dr Candelario Code(s): I63.9 - CEREBRAL INFARCTION, UNSPECIFIED (6) Carotid artery stenosis Assessment/Plan: -100% occlusion per brother at bedside -seen on carotid ultrasound Code(s): I65.29 - OCCLUSION AND STENOSIS OF UNSPECIFIED CAROTID ARTERY Qualifiers: Laterality: left Qualified Code(s): I65.22 - Occlusion and stenosis of left carotid artery Problem List - Problems (1) Pre-syncope Code(s): R55 - SYNCOPE AND COLLAPSE (2) Ulnar fracture Code(s): S52.209A - UNSP FRACTURE OF SHAFT OF UNSP ULNA, INIT FOR CLOS FX Qualifiers: Encounter type: initial encounter Ulna location: proximal ulna Fracture type: closed Fracture morphology: unspecified fracture morphology Laterality : right Qualified Code(s): S52.001A - Unspecified fracture of upper end of right ulna, initial encounter for closed fracture (3) Fall from ground level Code(s): W18.30XA - FALL ON SAME LEVEL, UNSPECIFIED, INITIAL ENCOUNTER (4) Diabetes Code(s): E11.9 - TYPE 2 DIABETES MELLITUS WITHOUT COMPLICATIONS (5) CVA (cerebral vascular accident) Code(s): I63.9 - CEREBRAL INFARCTION, UNSPECIFIED (6) Carotid artery stenosis Code(s): I65.29 - OCCLUSION AND STENOSIS OF UNSPECIFIED CAROTID ARTERY Qualifiers: Laterality: left Qualified Code(s): I65.22 - Occlusion and stenosis of left carotid artery
[2018-12-20] MEDS: ESCITALOPRAM OXALATE 20 MG TABLET (FP) PO SCH (21:14)
[2018-12-20] MEDS: ATORVASTATIN CA 40 MG TABLET (FP) PO SCH (21:14)
[2018-12-21] MEDS: metFORMIN HCL 500 MG TABLET (FP) PO SCH ×2 (06:43→16:50)
[2018-12-21] MEDS: INSULIN SLIDING SCALE (NOVOLOG) 1 VIAL SQ SCH ×4 (06:47→21:42)
--- NOTE | 2018-12-21 07:52 | PN ---
Physical Exam: SUBJECTIVE: Patient seen and examined resting in bed nad. aafebrile hemodynamically stable, no acute events. unable to stand up or walk with pt. still has pain in RLE especially with weight bearing. denies dizziness, palpitations. OBJECTIVE: Vital Signs Period Temp Pulse Resp BP Sys/Rios Pulse Ox Last 24 Hr 97.6 F-99.4 F 67-71 17-19 116-146/66-79 98-98 GENERAL: The patient is awake, alert, in no acute distress. HEAD: Normal with no signs of trauma. EYES: sclera anicteric, conjunctiva clear. No ptosis. ENT: moist mucous membranes. NECK: supple. LUNGS: Breath sounds equal, clear to auscultation bilaterally HEART: Regular rate and rhythm, S1, S2 ABDOMEN: Soft, nontender, nondistended, normoactive bowel sounds, EXTREMITIES: LUE bandaged, painful proximal ulna NEUROLOGICAL: slurred speech, gait not observed. PSYCH: Normal mood, normal affect. SKIN: Warm, dry Laboratory Results - last 24 hr 12/20/18 12/20/18 12/20/18 07:50 07:50 11:12 WBC 7.9 RBC 3.50 L Hgb 11.3 L Hct 33.5 L MCV 95.5 MCH 32.3 MCHC 33.8 RDW 13.5 Plt Count 261 MPV 7.5 Sodium 138 Potassium 3.9 Chloride 106 Carbon Dioxide 25 Anion Gap 8 BUN 14 Creatinine 0.8 Est GFR (CKD-EPI)AfAm 106.38 Est GFR (CKD-EPI)NonAf 91.79 POC Glucometer 270 Random Glucose 185 H Calcium 8.3 L Phosphorus 3.0 Magnesium 2.0 12/20/18 12/20/18 12/21/18 17:35 20:59 05:44 WBC RBC Hgb Hct MCV MCH MCHC RDW Plt Count MPV Sodium Potassium Chloride Carbon Dioxide Anion Gap BUN Creatinine Est GFR (CKD-EPI)AfAm Est GFR (CKD-EPI)NonAf POC Glucometer 172 213 194 Random Glucose Calcium Phosphorus Magnesium Active Medications Generic Name Dose Route Start Last Admin Trade Name Freq PRN Reason Stop Dose Admin Acetaminophen 650 mg 12/18/18 18:08 12/20/18 14:01 Tylenol - PO 650 mg Q4H PRN Administration PAIN Aspirin 81 mg 12/19/18 10:00 12/20/18 10:11 Asa - PO 81 mg DAILY WILFRIDO Administration Atorvastatin Calcium 40 mg 12/20/18 22:00 12/20/18 21:14 Lipitor - PO 40 mg HS WILFRIDO Administration Escitalopram Oxalate 20 mg 12/18/18 22:00 12/20/18 21:14 Lexapro - PO 20 mg HS WILFRIDO Administration Ferrous Sulfate 325 mg 12/19/18 08:00 12/20/18 17:36 Feosol - PO 325 mg BIDWM WILFRIDO Administration Sodium Chloride 1,000 mls @ 75 mls/hr 12/18/18 18:15 12/20/18 21:16 Normal Saline - IV 75 mls/hr ASDIR WILFRIDO Administration Insulin Aspart 1 vial 12/18/18 22:00 12/21/18 06:47 Novolog Vial Sliding Scale - SQ Not Given ACHS WILFRIDO Protocol Levetiracetam 500 mg 12/18/18 22:00 12/20/18 21:14 Keppra Oral Solution - PO 500 mg BID WILFRIDO Administration Metformin HCl 1,000 mg 12/19/18 07:00 12/21/18 06:43 Glucophage - PO 1,000 mg BIDAC WILFRIDO Administration Pantoprazole Sodium 40 mg 12/19/18 10:00 12/20/18 10:11 Protonix - PO 40 mg DAILY WILFRIDO Administration ASSESSMENT/PLAN: This is a 68 yo M with PMH of dehydration due to intentional fluid restriction, NIDDM, 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), SZ (11 years ago now on Keppra), presenting with a presyncopal event and fall preceded by flushing, impact on R elbow, found to be hypotensive shortly after Pre syncopal episode with fall R proximal ulnar fracture Unable to walk due to RLE pain NIDDM SZ d/o -most likely vasovagal episode aggravated by dehydration (was found to be transiently hypotensive with flushing) -orthostatic vital signs wnl -hydrated with IV NS @ 75 -Carotid duplex shows occluded L ICA consistent with history of 100% occlusion reported by brother, no intervention warranted -TTE no significan valvular abnormality, ef wnl -cardio consult appreciated -imaging reviewed; tylenol for pain -ortho recommends posterior splint and outpatient f/u with repeat xray to appreciate stability/alignment -unable to walk at this time likely due to pain from fall. unable to weight bare in RLE or fully extend R knee. continue PT -CT lumbar spine unremarkable -RLE CT R nondisplaced acetabular fracture. -R elbow xray no change in alignment -f/u ortho eval for further recs -continue metformin -continue aspirin and keppra -neuro consult appreciated: neurologically stable -plan to dc tomorrow to rehab,. Problem List - Problems (1) Carotid artery stenosis Code(s): I65.29 - OCCLUSION AND STENOSIS OF UNSPECIFIED CAROTID ARTERY Qualifiers: Laterality: left Qualified Code(s): I65.22 - Occlusion and stenosis of left carotid artery (2) Diabetes Code(s): E11.9 - TYPE 2 DIABETES MELLITUS WITHOUT COMPLICATIONS (3) Fall from ground level Code(s): W18.30XA - FALL ON SAME LEVEL, UNSPECIFIED, INITIAL ENCOUNTER (4) Pre-syncope Code(s): R55 - SYNCOPE AND COLLAPSE (5) Ulnar fracture Code(s): S52.209A - UNSP FRACTURE OF SHAFT OF UNSP ULNA, INIT FOR CLOS FX Qualifiers: Encounter type: initial encounter Ulna location: proximal ulna Fracture type: closed Fracture morphology: unspecified fracture morphology Laterality : right Qualified Code(s): S52.001A - Unspecified fracture of upper end of right ulna, initial encounter for closed fracture Visit type - Emergency Visit Emergency Visit: Yes ED Registration Date: 12/19/18 Care time: The patient presented to the Emergency Department on the above date and was hospitalized for further evaluation of their emergent condition. - New Patient This patient is new to me today: No - Critical Care Critical Care patient: No - Discharge Referral [facility]erred to [facility] Med [facility] No
--- NOTE | 2018-12-21 08:34 | PN ---
Progress Note (short form) - Note Progress Note: Neurology Chief Complaint: Fell History of Present Illness: 68 year old male who comes in with a presyncopal event and fall. He is aphasic at baseline from prior CVA and mostly responds with yes. Notes, reviewed reportedly patient becomes dehydrated because he does not like to drink fluids as to prevent excessive urination. Wednesday, he and his brother were golfing and day prior to admission he went to [place] and had speech therapy. After leaving he was walking and became lightheaded and fell. He denies LOC or head trauma. He did fall and hit his R elbow. He was evaluated by the staff and found to have low blood pressure. At that time he felt he was well enough to go home so declined ambulance or hospital evaluation. He went to sleep and this morning asked to come to the hospital because he was having R arm pain. He said yes to having R arm pain and indicated his elbow. He denied fevers, chills, current lightheadedness/dizziness, change in vision (has L eye blindness), chest pain, shortness of breath, nausea, vomiting, abdominal pain, diarrhea, constipation, difficulty or pain on urination, or swelling. He was admitted for further evaluation. CT head completed and demonstrated previous L MCA infarct, consistent with his aphasia. Echo completed and reviewed. Neurologically stable at this time. Getting IV hydration. Spoke with brother, niranjan, yesterday in detail. He felt statin is the issue and does not want patient to take the medication. My advice was that removing statin increases risk for CVA and risk outweighs benefit at this time. Brother in disagreement and said he would speak with PCP and feels drug has built up in patient's system and based on his research online this is most likely cause. Patient from bed to chair and sitting comfortably this AM. - Allergies Allergies/Adverse Reactions: Allergies Allergy/AdvReac Type Severity Reaction Status Date / Time No Known Allergies Allergy Verified 12/18/18 14:29 Active Medications Acetaminophen (Tylenol -) 650 mg PO Q4H PRN PRN Reason: PAIN Last Admin: 12/20/18 14:01 Dose: 650 mg Aspirin (Asa -) 81 mg PO DAILY [facility] Last Admin: 12/20/18 10:11 Dose: 81 mg Atorvastatin Calcium (Lipitor -) 40 mg PO HS [facility]O Last Admin: 12/20/18 21:14 Dose: 40 mg Escitalopram Oxalate (Lexapro -) 20 mg PO HS [facility] Last Admin: 12/20/18 21:14 Dose: 20 mg Ferrous Sulfate (Feosol -) 325 mg PO BIDWM [facility] Last Admin: 12/20/18 17:36 Dose: 325 mg Sodium Chloride (Normal Saline -) 1,000 mls @ 75 mls/hr IV ASDIR [facility] Last Admin: 12/20/18 21:16 Dose: 75 mls/hr Insulin Aspart (Novolog Vial Sliding Scale -) 1 vial SQ ACHS [facility]; Protocol Last Admin: 12/21/18 06:47 Dose: Not Given Levetiracetam (Keppra Oral Solution -) 500 mg PO BID [facility] Last Admin: 12/20/18 21:14 Dose: 500 mg Metformin HCl (Glucophage -) 1,000 mg PO BIDAC [facility] Last Admin: 12/21/18 06:43 Dose: 1,000 mg Pantoprazole Sodium (Protonix -) 40 mg PO DAILY [facility] Last Admin: 12/20/18 10:11 Dose: 40 mg Home Medications: Ambulatory Orders Escitalopram Oxalate [Lexapro -] 20 mg PO HS 10/21/11 Metformin HCl [Glucophage] 1,000 mg PO BID 10/21/11 levETIRAcetam [Keppra Oral Solution -] 500 mg PO BID 10/21/11 Aspirin 81 mg PO DAILY 04/11/14 Atorvastatin Calcium 40 mg PO HS 12/18/18 Ferrous Sulfate [Iron] 325 mg PO ASDIR 12/18/18 Physical Examination Vital Signs Period Temp Pulse Resp BP Sys/Rios Pulse Ox Last 24 Hr 97.6 F-99.4 F 67-71 17- 116-146/66-79 98-98 Constitutional: Yes: Well Nourished, No Distress, Calm Eyes: Yes: Conjunctiva Clear HENT: Yes: Atraumatic, Normocephalic Cardiovascular: Yes: Regular Rate and Rhythm. No: Gallop, Murmur, Rub Respiratory: Yes: Regular, CTA Bilaterally. No: Rales, Rhonchi, Wheezes Gastrointestinal: Yes: Normal Bowel Sounds, Soft. No: Distention, Tenderness Extremities: Yes: WNL Edema: No Neuro: Aphasic, RUE and RLE 4//5, sensory intact, gait deferred CBCD WBC 7.9 K/mm3 (4.0-10.0) 12/20/18 07:50 RBC 3.50 M/mm3 (4.00-5.60) L 12/20/18 07:50 Hgb 11.3 GM/dL (11.7-16.9) L 12/20/18 07:50 Hct 33.5 % (35.4-49) L 12/20/18 07:50 MCV 95.5 fl (80-96) 12/20/18 07:50 MCHC 33.8 g/dl (32.0-35.9) 12/20/18 07:50 RDW 13.5 % (11.9-15.9) 12/20/18 07:50 Plt Count 261 K/MM3 (134-434) 12/20/18 07:50 MPV 7.5 fl (7.5-11.1) 12/20/18 07:50 CMP Sodium 138 mmol/L (136-145) 12/20/18 07:50 Potassium 3.9 mmol/L (3.5-5.1) 12/20/18 07:50 Chloride 106 mmol/L (98-107) 12/20/18 07:50 Carbon Dioxide 25 mmol/L (21-32) 12/20/18 07:50 Anion Gap 8 MMOL/L (8-16) 12/20/18 07:50 BUN 14 mg/dL (7-18) 12/20/18 07:50 Creatinine 0.8 mg/dL (0.55-1.3) 12/20/18 07:50 Random Glucose 185 mg/dL (74-106) H 12/20/18 07:50 Calcium 8.3 mg/dL (8.5-10.1) L 12/20/18 07:50 Total Bilirubin 0.8 mg/dL (0.2-1) 12/18/18 15:14 AST 11 U/L (15-37) L 12/18/18 15:14 ALT 15 U/L (13-61) 12/18/18 15:14 Alkaline Phosphatase 67 U/L (45-117) 12/18/18 15:14 Total Protein 6.5 g/dl (6.4-8.2) 12/18/18 15:14 Albumin 3.4 g/dl (3.4-5.0) 12/18/18 15:14 CARDIAC ENZYMES Creatine Kinase 60 U/L (26-308) 12/18/18 15:14 Troponin I < 0.02 ng/ml (0.00-0.05) 12/18/18 15:14 Problem List 68 year old male who comes in with a presyncopal event and fall. He is aphasic at baseline from prior CVA and mostly responds with yes. Notes, reviewed reportedly patient becomes dehydrated because he does not like to drink fluids as to prevent excessive urination. Wednesday, he and his brother were golfing and day prior to admission he went to [place] and had speech therapy. After leaving he was walking and became lightheaded and fell. He denies LOC or head trauma. He did fall and hit his R elbow. He was evaluated by the staff and found to have low blood pressure. At that time he felt he was well enough to go home so declined ambulance or hospital evaluation. He went to sleep and this morning asked to come to the hospital because he was having R arm pain. He said yes to having R arm pain and indicated his elbow. He denied fevers, chills, current lightheadedness/dizziness, change in vision (has L eye blindness), chest pain, shortness of breath, nausea, vomiting, abdominal pain, diarrhea, constipation, difficulty or pain on urination, or swelling. He was admitted for further evaluation. CT head completed and demonstrated previous L MCA infarct, consistent with his aphasia. Echo completed and reviewed. Neurologically stable at this time. Getting IV hydration. Spoke with brother, niranjan, yesterday in detail. He felt statin is the issue and does not want patient to take the medication. My advice was that removing statin increases risk for CVA and risk outweighs benefit at this time. Brother in disagreement and said he would speak with PCP and feels drug has built up in patient's system and based on his research online this is most likely cause. Patient from bed to chair and sitting comfortably this AM. Continue workup/mgmt for syncope. Carotid dopplers pending, previously with occlusion, consider vascular follow up. Orthostatics, hydration. Ortho follow up for ulnar fracture. Monitor glucose , optimize DM, can continue metformin. Can continue ASA 81, no need to change antiplatelet.
[2018-12-21] MEDS: FERROUS SO4 325 MG TABLET (FP) PO SCH ×2 (08:51→16:52)
[2018-12-21] MEDS: ASPIRIN 81 MG CHEWABLE TABLETS PO SCH (09:03)
[2018-12-21] MEDS: levETIRAcetam 500 MG/5 ML ORAL SOLUTION (UNIT-DOSE CUPS) PO SCH ×2 (09:03→21:42)
[2018-12-21] MEDS: PANTOPRAZOLE 40 MG TABLET (FP) PO SCH (09:03)
[2018-12-21] MEDS: ACETAMINOPHEN 325 MG TABLET (FP) PO PRN (09:08)
[2018-12-21] MEDS ORDERED: INSULIN (NOVOLOG) ASPART 100 UNITS/ML 10ML VIAL ONE ×2 (11:21→21:22)
--- NOTE | 2018-12-21 14:36 | PN ---
Progress Note, Physician Chief Complaint: seen and examined. Appears comfortable Denies CP , palps, SOB - Current Medication List Current Medications: Active Medications Acetaminophen (Tylenol -) 650 mg PO Q4H PRN PRN Reason: PAIN Last Admin: 12/21/18 09:08 Dose: 650 mg Aspirin (Asa -) 81 mg PO DAILY [facility] Last Admin: 12/21/18 09:03 Dose: 81 mg Atorvastatin Calcium (Lipitor -) 40 mg PO HS [facility] Last Admin: 12/20/18 21:14 Dose: 40 mg Escitalopram Oxalate (Lexapro -) 20 mg PO HS [facility] Last Admin: 12/20/18 21:14 Dose: 20 mg Ferrous Sulfate (Feosol -) 325 mg PO BIDWM [facility] Last Admin: 12/21/18 08:51 Dose: 325 mg Sodium Chloride (Normal Saline -) 1,000 mls @ 75 mls/hr IV ASDIR [facility] Last Admin: 12/20/18 21:16 Dose: 75 mls/hr Insulin Aspart (Novolog Vial Sliding Scale -) 1 vial SQ [facility]; Protocol Last Admin: 12/21/18 11:33 Dose: 2 units Levetiracetam (Keppra Oral Solution -) 500 mg PO BID [facility] Last Admin: 12/21/18 09:03 Dose: 500 mg Metformin HCl (Glucophage -) 1,000 mg PO BIDAC [facility] Last Admin: 12/21/18 06:43 Dose: 1,000 mg Pantoprazole Sodium (Protonix -) 40 mg PO DAILY [facility] Last Admin: 12/21/18 09:03 Dose: 40 mg - Objective Vital Signs: Vital Signs Temperature 99.0 F 12/21/18 08:56 Pulse Rate 84 12/21/18 08:56 Respiratory Rate 18 12/21/18 08:56 Blood Pressure 140/77 12/21/18 08:56 O2 Sat by Pulse Oximetry (%) 98 12/21/18 00:00 Constitutional: Yes: No Distress Cardiovascular: Yes: Regular Rate and Rhythm Respiratory: Yes: CTA Bilaterally (no rales or active wheezing) Gastrointestinal: Yes: Soft (nontender) Edema: No Neurological: Yes: Other (able to understand questions and respond appropriately although speech) Labs: CBC, BMP 12/20/18 07:50 12/20/18 07:50 INR, PTT INR 1.09 (0.83-1.09) 12/18/18 15:14 Assessment/Plan Assessment/Plan MRI/MRA brain 2017: chronic L MCA infarct with encephalomalacia. no flow in L ICA/MCA/lithographic platemaker communicating artery Carotids here: occluded LICA CT head here: old L MCA infarct, no acute pathology ECG: NSR, normal axis. early R/S transition, inc RBBB. no path q's, no ST-T (no signif change vs prior) CXR: clear lungs/pleura echo 12/2018: nl lv/rv, mild ar, mild pr, mild ao root dil 1. Presyncope with fall/injury: suspected to be vasovagal in etiology -dx'd ulnar fracture here -occurred in upright position when leaving speech therapist office, reportedly low bp noted by staff there. + prodrome of hot/flushing--suspect vasovagal episode predisposed by relative intravasc vol depletion. -not clinically dehydrated -normotensive -tele and echo were unremarkable -neuro following 2. Chronic carotid occlusion (left), prior L MCA stroke: -no acute pathology on imaging here -cont prior home sec prevention regimen (aspirin, statin)
--- NOTE | 2018-12-21 16:12 | PN ---
Progress Note (short form) - Note Progress Note: Pt seen and examined. He is a 68 year old male, now left hand dominant, who is 3 days s/p fall, with some prodromal symptoms, who injured his right elbow. He is several years s/p CVA with significant loss of function, and loss of most speach. His baseline function of the right upper extremity prior to his recent fall was very limited, with almost no active motion of the right elbow, forearm , wrist, fingers or thumb, decreased sensation, and a complete loss of strength. He did not use this elbow for much. He has min c/o pain in his right elbow, and right pelvis. PE RUE in a long arm, posterior splint No active ROM of the right hand, poor sensation, hand is W and WP Xrays Right elbow shows a moderately displaced, mildly gaped (~3mm at the articular surface) intra articular olecranon fracture. Right Hand Nl Right knee Nl Right shoulder Nl CT C spine shows mod OA CT LS spine Nl CT RLE shows an acute, nondisplaced, right superior acetabular fracture Imp 68 year old (now) left hand dom male with an acute, displaced right elbow olecranon fracture, and an acute, nondisplaced right acetabular fracture. I am not recommending operative treatment, as his baseline RUE function is almost zero. Rec Con't in posterior splint and sling. [place] likely will be the definitive treatment for several weeks. He is allowed to WBAT for the acetabular fracture, if he is capable of participating in P.T. He can f/u with me as an out patient 1-2 weeks after discharge, for f/u x- rays of the right elbow.
--- NOTE | 2018-12-21 16:44 | PN ---
Teaching Attending Note Name of Resident: Nia Rivas ATTENDING PHYSICIAN STATEMENT I saw and evaluated the patient. I reviewed the resident's note and discussed the case with the resident. I agree with the resident's findings and plan as documented. SUBJECTIVE: unable to obtain but patient appears comfortable OBJECTIVE: Last Vital Signs Temp Pulse Resp BP Pulse Ox 36.9 C 69 20 127/75 98 12/21/18 14:00 12/21/18 14:00 12/21/18 14:00 12/21/18 14:00 12/21/18 00:00 Gen: nad Pulm: ctab w/o w/r/r CV: rrr w/o m/r/g Abd: +bs, s/nt/nd Ext: no c/c/e CBC, BMP 12/20/18 07:50 12/20/18 07:50 ASSESSMENT AND PLAN: (1) Pre-syncope Assessment/Plan: -? if pre-syncope or fall -work up negative -appreciate cardiology assistance Code(s): R55 - SYNCOPE AND COLLAPSE (2) Ulnar fracture Assessment/Plan: -orthopedic surgery consulted -conservative management at this time -continue sling Code(s): S52.209A - UNSP FRACTURE OF SHAFT OF UNSP ULNA, INIT FOR CLOS FX Qualifiers: Encounter type: initial encounter Ulna location: proximal ulna Fracture type: closed Fracture morphology: unspecified fracture morphology Laterality : right Qualified Code(s): S52.001A - Unspecified fracture of upper end of right ulna, initial encounter for closed fracture (3) Fall from ground level Assessment/Plan: -? if mechanical -now patient with difficulty walking secondary to pain -CT scan reviewed -non-displaced fracture of the r acetabulum -will need pain control and PT at SNF Code(s): W18.30XA - FALL ON SAME LEVEL, UNSPECIFIED, INITIAL ENCOUNTER (4) Diabetes Assessment/Plan: -continue metformin -diabetic diet -FSBS and SSI Code(s): E11.9 - TYPE 2 DIABETES MELLITUS WITHOUT COMPLICATIONS (5) CVA (cerebral vascular accident) Assessment/Plan: -history of with aphasia -deficit unchanged -CT scan reviewed -continue aspirin and keppra -case d/w Dr Candelario Code(s): I63.9 - CEREBRAL INFARCTION, UNSPECIFIED (6) Carotid artery stenosis Assessment/Plan: -100% occlusion per brother at bedside -seen on carotid ultrasound Code(s): I65.29 - OCCLUSION AND STENOSIS OF UNSPECIFIED CAROTID ARTERY Qualifiers: Laterality: left Qualified Code(s): I65.22 - Occlusion and stenosis of left carotid artery Problem List - Problems (1) Pre-syncope Code(s): R55 - SYNCOPE AND COLLAPSE (2) Ulnar fracture Code(s): S52.209A - UNSP FRACTURE OF SHAFT OF UNSP ULNA, INIT FOR CLOS FX Qualifiers: Encounter type: initial encounter Ulna location: proximal ulna Fracture type: closed Fracture morphology: unspecified fracture morphology Laterality : right Qualified Code(s): S52.001A - Unspecified fracture of upper end of right ulna, initial encounter for closed fracture (3) Fall from ground level Code(s): W18.30XA - FALL ON SAME LEVEL, UNSPECIFIED, INITIAL ENCOUNTER (4) Diabetes Code(s): E11.9 - TYPE 2 DIABETES MELLITUS WITHOUT COMPLICATIONS (5) CVA (cerebral vascular accident) Code(s): I63.9 - CEREBRAL INFARCTION, UNSPECIFIED (6) Carotid artery stenosis Code(s): I65.29 - OCCLUSION AND STENOSIS OF UNSPECIFIED CAROTID ARTERY Qualifiers: Laterality: left Qualified Code(s): I65.22 - Occlusion and stenosis of left carotid artery
--- NOTE | 2018-12-21 17:08 | PN ---
Progress Note (short form) - Note Progress Note: 68 yo male with right olecranon fracture s/p presyncope fall over the weekend. Was consulted due to inability to bear weight on RLE since his admission. Patient has limited communication due to prior CVA 12 years ago, only answers in yes or no statements. When asked where he has pain, patient points to right elbow. He is lying comfortably in bed during evaluation. Last Vital Signs Temp Pulse Resp BP Pulse Ox 98.4 F 69 20 127/75 98 12/21/18 14:00 12/21/18 14:00 12/21/18 14:00 12/21/18 14:00 12/21/18 00:00 PE: RUE- Posterior splint in place Tender about the olecranon NVI Cap refill intact RLE- No swelling or ecchymosis noted Nontender throughout the hip or knee Pain with internal ROM of hip Full painless ROM of knee NVI Cap refill intact A: s/p right olecranon fracture P: Right elbow XR today show minimally displaced transverse olecranon fracture, ? change in alignment from prior XR on 12/18/18. Will f/u outpatient in 1 week for repeat XR and to discuss surgical vs. nonsurgical options. Examination of right knee does not show any evidence of acute pathology. Patient also does not endorse any pain from this area. CT of RLE today shows nondisplaced fracture of superior aspect of acetabulum. This fracture will likely heal on its own in 6-8 weeks without future limitations. Since the fracture is not involving the dome, patient okay to toe- touch weight bear. If he is unable to safely ambulate with assistive device due to ipsilateral oleranon fracture, he would best be suited for discharge to a rehab facility. Okay for discharge from ortho standpoint
[2018-12-21] MEDS: SODIUM CHLORIDE 1,000 ML IV SCH (17:58)
[2018-12-21] MEDS: ESCITALOPRAM OXALATE 20 MG TABLET (FP) PO SCH (21:42)
[2018-12-21] MEDS: ATORVASTATIN CA 40 MG TABLET (FP) PO SCH (21:42)
[2018-12-22] MEDS: metFORMIN HCL 500 MG TABLET (FP) PO SCH (06:15)
[2018-12-22] MEDS: INSULIN SLIDING SCALE (NOVOLOG) 1 VIAL SQ SCH ×2 (06:15→11:47)
[2018-12-22] MEDS: SODIUM CHLORIDE 1,000 ML IV SCH (06:20)
--- NOTE | 2018-12-22 07:52 | PN ---
Physical Exam: SUBJECTIVE: Patient seen and examined resting in bed nad. aafebrile hemodynamically stable, no acute events. unable to stand up or walk with pt. still has pain in RLE especially with weight bearing. denies dizziness, palpitations. OBJECTIVE: Vital Signs Period Temp Pulse Resp BP Sys/Rios Pulse Ox Last 24 Hr 97.7 F-99.0 F 69-84 18-20 127-158/75-96 98 GENERAL: The patient is awake, alert, in no acute distress. HEAD: Normal with no signs of trauma. EYES: sclera anicteric, conjunctiva clear. No ptosis. ENT: moist mucous membranes. NECK: supple. LUNGS: Breath sounds equal, clear to auscultation bilaterally HEART: Regular rate and rhythm, S1, S2 ABDOMEN: Soft, nontender, nondistended, normoactive bowel sounds, EXTREMITIES: LUE bandaged, painful proximal ulna NEUROLOGICAL: slurred speech, gait not observed. PSYCH: Normal mood, normal affect. SKIN: Warm, dry Laboratory Results - last 24 hr 12/21/18 12/21/18 12/21/18 11:31 16:47 21:40 POC Glucometer 202 145 143 12/22/18 06:13 POC Glucometer 163 Active Medications Generic Name Dose Route Start Last Admin Trade Name Freq PRN Reason Stop Dose Admin Acetaminophen 650 mg 12/18/18 18:08 12/21/18 09:08 Tylenol - PO 650 mg Q4H PRN Administration PAIN Aspirin 81 mg 12/19/18 10:00 12/21/18 09:03 Asa - PO 81 mg DAILY [facility] Administration Atorvastatin Calcium 40 mg 12/20/18 22:00 12/21/18 21:42 Lipitor - PO 40 mg HS [facility] Administration Escitalopram Oxalate 20 mg 12/18/18 22:00 12/21/18 21:42 Lexapro - PO 20 mg HS [facility] Administration Ferrous Sulfate 325 mg 12/19/18 08:00 12/21/18 16:52 Feosol - PO 325 mg BIDWM [facility] Administration Sodium Chloride 1,000 mls @ 75 mls/hr 12/18/18 18:15 12/22/18 06:20 Normal Saline - IV 75 mls/hr ASDIR [facility] Administration Insulin Aspart 1 vial 12/18/18 22:00 12/22/18 06:15 Novolog Vial Sliding Scale - SQ Not Given ACHS [facility] Protocol Levetiracetam 500 mg 12/18/18 22:00 12/21/18 21:42 Keppra Oral Solution - PO 500 mg BID [facility] Administration Metformin HCl 1,000 mg 12/19/18 07:00 12/22/18 06:15 Glucophage - PO 1,000 mg BIDAC [facility] Administration Pantoprazole Sodium 40 mg 12/19/18 10:00 12/21/18 09:03 Protonix - PO 40 mg DAILY [facility] Administration ASSESSMENT/PLAN: This is a 68 yo M with PMH of dehydration due to intentional fluid restriction, NIDDM, 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), SZ (11 years ago now on Keppra), presenting with a presyncopal event and fall preceded by flushing, impact on R elbow, found to be hypotensive shortly after Pre syncopal episode with fall R proximal ulnar fracture Unable to walk due to RLE pain NIDDM SZ d/o -most likely vasovagal episode aggravated by dehydration (was found to be transiently hypotensive with flushing) -orthostatic vital signs wnl -hydrated with IV NS @ 75 -Carotid duplex shows occluded L ICA consistent with history of 100% occlusion reported by brother, no intervention warranted -TTE no significan valvular abnormality, ef wnl -cardio consult appreciated -imaging reviewed; tylenol for pain -ortho recommends posterior splint and outpatient f/u with repeat xray to appreciate stability/alignment -unable to walk at this time likely due to pain from fall. unable to weight bare in RLE or fully extend R knee. continue PT -CT lumbar spine unremarkable -RLE CT R nondisplaced acetabular fracture. -R elbow xray no change in alignment -f/u ortho eval for further recs -continue metformin -continue aspirin and keppra -neuro consult appreciated: neurologically stable -plan to dc tomorrow to rehab,. Problem List - Problems (1) Carotid artery stenosis Code(s): I65.29 - OCCLUSION AND STENOSIS OF UNSPECIFIED CAROTID ARTERY Qualifiers: Laterality: left Qualified Code(s): I65.22 - Occlusion and stenosis of left carotid artery (2) Diabetes Code(s): E11.9 - TYPE 2 DIABETES MELLITUS WITHOUT COMPLICATIONS (3) Fall from ground level Code(s): W18.30XA - FALL ON SAME LEVEL, UNSPECIFIED, INITIAL ENCOUNTER (4) Pre-syncope Code(s): R55 - SYNCOPE AND COLLAPSE (5) Ulnar fracture Code(s): S52.209A - UNSP FRACTURE OF SHAFT OF UNSP ULNA, INIT FOR CLOS FX Qualifiers: Encounter type: initial encounter Ulna location: proximal ulna Fracture type: closed Fracture morphology: unspecified fracture morphology Laterality : right Qualified Code(s): S52.001A - Unspecified fracture of upper end of right ulna, initial encounter for closed fracture
--- NOTE | 2018-12-22 08:08 | PN ---
Teaching Attending Note Name of Resident: Nia Rivas ATTENDING PHYSICIAN STATEMENT I saw and evaluated the patient. I reviewed the resident's note and discussed the case with the resident. I agree with the resident's findings and plan as documented with exceptions below. SUBJECTIVE: Patient seen and examined, Pain well controlled, no new complaints. OBJECTIVE: Vital Signs Period Temp Pulse Resp BP Sys/Rios Pulse Ox Last 24 Hr 97.7 F-98.9 F 69-72 20-20 127-158/75-96 98 Intake & Output 12/19/18 12/20/18 12/21/18 12/22/18 23:59 23:59 23:59 23:59 Intake Total 320 2250 2885 825 Output Total 250 1000 420 Balance 70 1250 2465 825 Weight 210 lb General: sitting in chair no acute distress Chest: CTAB, no rales or wheezing Abdomen: soft, NT, ND Extremities: RUE sling, power 1-2/5, poor hand yacht hand, RLE 3/5 at right hip Neck: soft, supple, no JVD ASSESSMENT AND PLAN: 68 yom with PMHx of L MCA CVA 2006 with right hemiparesis, NIDDM admitted with pre-syncope, fall. -Pre syncope, suspect vasovagal compounded by hypovolemia from poor fluid intake /being outdoors in the sun for prolonged period -Acute left olecranon fracture -Acute non displaced acetabular fracture -Left ICA 100% stenosis (known) -Left MCA CVA 2006 with right hemiparesis -NIDDM Plan: No event on tele. 2D echo.carotid duplex noted. Neurology/cardiology input appreciated. IVF, encourage oral fluid intake outpatient and to avoid prolonged standing and sudden postural changes. Orthopedic input noted. Conservative management. Sling RUE. WBAT RLE. DVTPPX Metformin, ISS. Dispo to rehab today. Plan discussed with patient and nursing, all questions answered.
--- NOTE | 2018-12-22 08:57 | PN ---
Progress Note (short form) - Note Progress Note: Neurology Chief Complaint: Fell History of Present Illness: 68 year old male who comes in with a presyncopal event and fall. He is aphasic at baseline from prior CVA and mostly responds with yes. Notes, reviewed reportedly patient becomes dehydrated because he does not like to drink fluids as to prevent excessive urination. Wednesday, he and his brother were golfing and day prior to admission he went to [facility] and had speech therapy. After leaving he was walking and became lightheaded and fell. He denies LOC or head trauma. He did fall and hit his R elbow. He was evaluated by the staff and found to have low blood pressure. At that time he felt he was well enough to go home so declined ambulance or hospital evaluation. He went to sleep and this morning asked to come to the hospital because he was having R arm pain. He said yes to having R arm pain and indicated his elbow. He denied fevers, chills, current lightheadedness/dizziness, change in vision (has L eye blindness), chest pain, shortness of breath, nausea, vomiting, abdominal pain, diarrhea, constipation, difficulty or pain on urination, or swelling. He was admitted for further evaluation. CT head completed and demonstrated previous L MCA infarct, consistent with his aphasia. Echo completed and reviewed. Neurologically stable at this time. Getting IV hydration. Spoke with brother, niranjan, previously in detail. He felt statin is the issue and does not want patient to take the medication. My advice was that removing statin increases risk for CVA and risk outweighs benefit at this time. Brother in disagreement and said he would speak with PCP and feels drug has built up in patient's system and based on his research online this is most likely cause. Patient sitting up in bed, cast in place in RUE. Plan is for short term rehab placement. In agreement with this. Active Medications Acetaminophen (Tylenol -) 650 mg PO Q4H PRN PRN Reason: PAIN Last Admin: 12/21/18 09:08 Dose: 650 mg Aspirin (Asa -) 81 mg PO DAILY [facility] Last Admin: 12/21/18 09:03 Dose: 81 mg Atorvastatin Calcium (Lipitor -) 40 mg PO HS [facility] Last Admin: 12/21/18 21:42 Dose: 40 mg Escitalopram Oxalate (Lexapro -) 20 mg PO HS [facility] Last Admin: 12/21/18 21:42 Dose: 20 mg Ferrous Sulfate (Feosol -) 325 mg PO BIDWM WILFRIDO Last Admin: 12/21/18 16:52 Dose: 325 mg Sodium Chloride (Normal Saline -) 1,000 mls @ 75 mls/hr IV ASDIR [facility] Last Admin: 12/22/18 06:20 Dose: 75 mls/hr Insulin Aspart (Novolog Vial Sliding Scale -) 1 vial SQ ACHS [facility]; Protocol Last Admin: 12/22/18 06:15 Dose: Not Given Levetiracetam (Keppra Oral Solution -) 500 mg PO BID [facility] Last Admin: 12/21/18 21:42 Dose: 500 mg Metformin HCl (Glucophage -) 1,000 mg PO BIDAC [facility] Last Admin: 12/22/18 06:15 Dose: 1,000 mg Pantoprazole Sodium (Protonix -) 40 mg PO DAILY [facility] Last Admin: 12/21/18 09:03 Dose: 40 mg Physical Examination Vital Signs Period Temp Pulse Resp BP Sys/Rios Pulse Ox Last 24 Hr 97.7 F-98.9 F 69-72 20-20 127-158/75-96 98 Constitutional: Yes: Well Nourished, No Distress, Calm Eyes: Yes: Conjunctiva Clear HENT: Yes: Atraumatic, Normocephalic Cardiovascular: Yes: Regular Rate and Rhythm. No: Gallop, Murmur, Rub Respiratory: Yes: Regular, CTA Bilaterally. No: Rales, Rhonchi, Wheezes Gastrointestinal: Yes: Normal Bowel Sounds, Soft. No: Distention, Tenderness Extremities: Yes: WNL Edema: No Neuro: Aphasic, RUE and RLE 4//5, sensory intact, gait deferred CBCD WBC 7.9 K/mm3 (4.0-10.0) 12/20/18 07:50 RBC 3.50 M/mm3 (4.00-5.60) L 12/20/18 07:50 Hgb 11.3 GM/dL (11.7-16.9) L 12/20/18 07:50 Hct 33.5 % (35.4-49) L 12/20/18 07:50 MCV 95.5 fl (80-96) 12/20/18 07:50 MCHC 33.8 g/dl (32.0-35.9) 12/20/18 07:50 RDW 13.5 % (11.9-15.9) 12/20/18 07:50 Plt Count 261 K/MM3 (134-434) 12/20/18 07:50 MPV 7.5 fl (7.5-11.1) 12/20/18 07:50 CMP Sodium 138 mmol/L (136-145) 12/20/18 07:50 Potassium 3.9 mmol/L (3.5-5.1) 12/20/18 07:50 Chloride 106 mmol/L (98-107) 12/20/18 07:50 Carbon Dioxide 25 mmol/L (21-32) 12/20/18 07:50 Anion Gap 8 MMOL/L (8-16) 12/20/18 07:50 BUN 14 mg/dL (7-18) 12/20/18 07:50 Creatinine 0.8 mg/dL (0.55-1.3) 12/20/18 07:50 Random Glucose 185 mg/dL (74-106) H 12/20/18 07:50 Calcium 8.3 mg/dL (8.5-10.1) L 12/20/18 07:50 Total Bilirubin 0.8 mg/dL (0.2-1) 12/18/18 15:14 AST 11 U/L (15-37) L 12/18/18 15:14 ALT 15 U/L (13-61) 12/18/18 15:14 Alkaline Phosphatase 67 U/L (45-117) 12/18/18 15:14 Total Protein 6.5 g/dl (6.4-8.2) 12/18/18 15:14 Albumin 3.4 g/dl (3.4-5.0) 12/18/18 15:14 CARDIAC ENZYMES Creatine Kinase 60 U/L (26-308) 12/18/18 15:14 Troponin I < 0.02 ng/ml (0.00-0.05) 12/18/18 15:14 Problem List 68 year old male who comes in with a presyncopal event and fall. He is aphasic at baseline from prior CVA and mostly responds with yes. Notes, reviewed reportedly patient becomes dehydrated because he does not like to drink fluids as to prevent excessive urination. Wednesday, he and his brother were golfing and day prior to admission he went to [place] and had speech therapy. After leaving he was walking and became lightheaded and fell. He denies LOC or head trauma. He did fall and hit his R elbow. He was evaluated by the staff and found to have low blood pressure. At that time he felt he was well enough to go home so declined ambulance or hospital evaluation. He went to sleep and this morning asked to come to the hospital because he was having R arm pain. He said yes to having R arm pain and indicated his elbow. He denied fevers, chills, current lightheadedness/dizziness, change in vision (has L eye blindness), chest pain, shortness of breath, nausea, vomiting, abdominal pain, diarrhea, constipation, difficulty or pain on urination, or swelling. He was admitted for further evaluation. CT head completed and demonstrated previous L MCA infarct, consistent with his aphasia. Echo completed and reviewed. Neurologically stable at this time. Getting IV hydration. Spoke with brother, niranjan, yesterday in detail. He felt statin is the issue and does not want patient to take the medication. My advice was that removing statin increases risk for CVA and risk outweighs benefit at this time. Brother in disagreement and said he would speak with PCP and feels drug has built up in patient's system and based on his research online this is most likely cause. Patient from bed to chair and sitting comfortably this AM. Continue workup/mgmt for syncope. Orthostatics, hydration. Ortho follow up for ulnar fracture, remains in cast. Monitor glucose, optimize DM, can continue metformin. Can continue ASA 81, no need to change antiplatelet. Agree with plan for short term rehab. Neurologically stable at this time.
--- NOTE | 2018-12-22 09:12 | PN ---
Progress Note (short form) - Note Progress Note: Ortho Pt seen and examined s/p right olecranon fx, right superior acetabular fx Selected Entries 12/22/18 05:31 Temperature 98.9 F Pulse Rate 69 Respiratory 20 Rate Blood Pressure 158/96 right UE -splint intact, nvi Right hip- + ttp, decr rom, equal limb lengths, nvi a/p continue conservative tx keep splint intact wbat rle PT d/c planning d/w Dr. Taylor
[2018-12-22] MEDS ORDERED: PT OWN MED DRAWER 7, Y5N ONE (10:37)
[2018-12-22] MEDS: ACETAMINOPHEN 325 MG TABLET (FP) PO PRN (10:42)
[2018-12-22] MEDS: ASPIRIN 81 MG CHEWABLE TABLETS PO SCH (10:43)
[2018-12-22] MEDS: PANTOPRAZOLE 40 MG TABLET (FP) PO SCH (10:43)
[2018-12-22] MEDS: levETIRAcetam 500 MG/5 ML ORAL SOLUTION (UNIT-DOSE CUPS) PO SCH (10:43)
[2018-12-22] MEDS: FERROUS SO4 325 MG TABLET (FP) PO SCH (10:43)
--- NOTE | 2018-12-22 11:23 | DS ---
Physical Exam: SUBJECTIVE: Patient seen and examined resting in bed nad. aafebrile hemodynamically stable, no acute events. unable to stand up or walk with pt. still has pain in RLE especially with weight bearing. denies dizziness, palpitations. OBJECTIVE: Vital Signs Period Temp Pulse Resp BP Sys/Rios Pulse Ox Last 24 Hr 97.7 F-98.9 F 69-72 20-20 127-158/75-96 98 PHYSICAL EXAM GENERAL: The patient is awake, alert, in no acute distress. HEAD: Normal with no signs of trauma. EYES: sclera anicteric, conjunctiva clear. No ptosis. ENT: moist mucous membranes. NECK: supple. LUNGS: Breath sounds equal, clear to auscultation bilaterally HEART: Regular rate and rhythm, S1, S2 ABDOMEN: Soft, nontender, nondistended, normoactive bowel sounds, EXTREMITIES: LUE bandaged, painful proximal ulna NEUROLOGICAL: slurred speech, gait not observed. PSYCH: Normal mood, normal affect. 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 During the hospital course the fall was determined to be due to vasovagal event and patient was evaluated by cardiology. he was hydrated and remained hemodynamically stable. On imaging he was found to have a R proximal ulnar fracture which was placed in posterior splint and reevaluated with x ray several days later for proper alignment. he was also found to have a R nondisplaced acetabular fracture which prevented him from weight bearing on RLE ; that was also evaluated by ortho and determined not to require surgery. patient was dcd to [facility] and recommended to f/u with orhopedics Date of Discharge: 12/22/18 Minutes to complete discharge: 35 Discharge Summary Reason For Visit: PRE-SYNCOPE,FRACTURE OF ULNA,FALL FROM GROUND LEVE Current Active Problems CVA (cerebral vascular accident) (Acute) Carotid artery stenosis (Acute) Diabetes (Acute) Fall from ground level (Acute) Pre-syncope (Acute) Ulnar fracture (Acute) Condition: Stable - Instructions Diet, Activity, Other Instructions: MEDICATIONS: Continue home medications as before, no changes have been made INSTRUCTIONS: Right upper extremity sling for now. Weight bearing as tolerated right leg. Please ensure to maintain adequate hydration and avoid sudden changes in position or prolonged standing or prolonged sun exposure. No driving, operating heavy machinery. FOLLOW UP: With primary care doctor in 1 week of discharge from rehab With orthopedic Dr. Desir in 1-2 weeks If you notice any new weakness, swelling, worsening pain, or any new concerns, please call 911 or come to the ED right away. Referrals: Joe Candelario MD [Staff Physician] - Stefania Wang MD [Primary Care Provider] - Jose Desir MD [Staff Physician] - 1 Week [facility]position: [facility] - Home Medications Comprehensive Discharge Medication List: Ambulatory Orders Escitalopram Oxalate [Lexapro -] 10 mg PO HS 10/21/11 Metformin HCl [Glucophage] 1,000 mg PO BID 10/21/11 levETIRAcetam [Keppra Oral Solution -] 500 mg PO BID 10/21/11 Aspirin 81 mg PO DAILY 04/11/14 Atorvastatin Calcium 40 mg PO HS 12/18/18 Ferrous Sulfate [Iron] 325 mg PO ASDIR 12/18/18 Acetaminophen [Tylenol .Regular Strength -] 650 mg PO Q4H PRN tablet 12/22/18 Insulin Sliding Scale [Novolog Vial Sliding Scale -] 1 vial SQ ACHS units 12/22 Problem List - Problems (1) Carotid artery stenosis Code(s): I65.29 - OCCLUSION AND STENOSIS OF UNSPECIFIED CAROTID ARTERY Qualifiers: Laterality: left Qualified Code(s): I65.22 - Occlusion and stenosis of left carotid artery (2) Diabetes Code(s): E11.9 - TYPE 2 DIABETES MELLITUS WITHOUT COMPLICATIONS (3) Fall from ground level Code(s): W18.30XA - FALL ON SAME LEVEL, UNSPECIFIED, INITIAL ENCOUNTER (4) Pre-syncope Code(s): R55 - SYNCOPE AND COLLAPSE (5) Ulnar fracture Code(s): S52.209A - UNSP FRACTURE OF SHAFT OF UNSP ULNA, INIT FOR CLOS FX Qualifiers: Encounter type: initial encounter Ulna location: proximal ulna Fracture type: closed Fracture morphology: unspecified fracture morphology Laterality : right Qualified Code(s): S52.001A - Unspecified fracture of upper end of right ulna, initial encounter for closed fracture This patient is new to me today: Yes Date on this admission: 12/22/18 Emergency Visit: No Critical Care patient: No - Discharge Referral Referred to [facility] No
--- NOTE | 2018-12-22 12:44 | PN ---
Progress Note (short form) - Note Progress Note: s: no cp sob palps dizzy Current Medications Generic Name Dose Route Start Last Admin Trade Name Freq PRN Reason Stop Dose Admin Acetaminophen 650 mg 12/18/18 18:08 12/22/18 10:42 Tylenol - PO 650 mg Q4H PRN Administration PAIN Aspirin 81 mg 12/19/18 10:00 12/22/18 10:43 Asa - PO 81 mg DAILY WILFRIDO Administration Atorvastatin Calcium 40 mg 12/20/18 22:00 12/21/18 21:42 Lipitor - PO 40 mg HS WILFRIDO Administration Escitalopram Oxalate 20 mg 12/18/18 22:00 12/21/18 21:42 Lexapro - PO 20 mg HS IWLFRIDO Administration Ferrous Sulfate 325 mg 12/19/18 08:00 12/22/18 10:43 Feosol - PO 325 mg BIDWM WILFRIDO Administration Sodium Chloride 1,000 mls @ 75 mls/hr 12/18/18 18:15 12/22/18 06:20 Normal Saline - IV 75 mls/hr ASDIR WILFRIDO Administration Insulin Aspart 1 vial 12/18/18 22:00 12/22/18 11:47 Novolog Vial Sliding Scale - SQ 2 units ACHS WILFRIDO Administration Protocol Levetiracetam 500 mg 12/18/18 22:00 12/22/18 10:43 Keppra Oral Solution - PO 500 mg BID WILFRIDO Administration Metformin HCl 1,000 mg 12/19/18 07:00 12/22/18 06:15 Glucophage - PO 1,000 mg BIDAC WILFRIDO Administration Pantoprazole Sodium 40 mg 12/19/18 10:00 12/22/18 10:43 Protonix - PO 40 mg DAILY WILFR[facility]O Administration Vital Signs Period Temp Pulse Resp BP Sys/Rios Pulse Ox Last 24 Hr 97.7 F-98.9 F 69-72 18-20 127-158/75-96 98 Constitutional: Yes: Well Nourished, No Distress Eyes: No: Sclera Icterus Respiratory: Yes: CTA Bilaterally. No: Accessory Muscle Use, Rales, Wheezes Gastrointestinal: Yes: Normal Bowel Sounds. No: Distention, Hepatomegaly, Palpable Mass, Tenderness Cardiovascular: Yes: Regular Rate and Rhythm JVD: No Heart Sounds: Yes: S1, S2. No: Gallop Murmur: No: Systolic Murmur, Diastolic Murmur Extremities: No: Cold, Cyanosis Edema: No Integumentary: No: Jaundice diaphoresis Neurological: Yes: Alert. No: Seizure Psychiatric: No: Agitated - Other Data Labs, Other Data: CBC, BMP 12/20/18 07:50 12/20/18 07:50 Assessment/Plan MRI/MRA brain 2017: chronic L MCA infarct with encephalomalacia. no flow in L ICA/MCA/comprehensive advisor communicating artery Carotids here: occluded LICA CT head here: old L MCA infarct, no acute pathology ECG: NSR, normal axis. early R/S transition, inc RBBB. no path q's, no ST-T (no signif change vs prior) CXR: clear lungs/pleura echo 12/2018: nl lv/rv, mild ar, mild pr, mild ao root dil presyncope with fall/injury: -dx'd ulnar fracture here -occurred in upright position when leaving speech therapist office, reportedly low bp noted by staff there. + prodrome of hot/flushing--suspect vasovagal episode predisposed by relative intravasc vol depletion. -not clinically dehydrated on electrolytes here. -normotensive here -tele and echo unremarkable here -neuro following known carotid occlusion (left), prior L MCA stroke: -no acute pathology on imaging here -cont prior home sec prevention regimen (aspirin, statin) -per hospitalist cardiac deutsch ok for snf
[2018-12-22 14:18] VITALS: BP 150/86; PULSE 74; TEMP 98.2
== END 2018-12-22 14:33 | DRG 562 ==
LOC: JER 14:22 → JERBED 17:38 → OBSVTOIN 12-19 15:08 → J6S 12-19 16:15
PROVIDERS: ADMIT Internal Medicine; ATTEND Hospitalist
DX: S52.201A Unspecified fracture of shaft of right ulna, initial encounter for closed fracture (principal); S32.401A Unspecified fracture of right acetabulum, initial encounter for closed fracture; I69.351 Hemiplegia and hemiparesis following cerebral infarction affecting right dominant side; R55 Syncope and collapse; I65.29 Occlusion and stenosis of unspecified carotid artery; I69.920 Aphasia following unspecified cerebrovascular disease; E11.9 Type 2 diabetes mellitus without complications; W19.XXXA Unspecified fall, initial encounter; Y93.9 Activity, unspecified; Y92.89 Other specified places as the place of occurrence of the external cause; Y99.9 Unspecified external cause status
CPT/HCPCS: 36415; 70450-TC; 71046-TC-FY; 72125-TC; 72131-TC; 73030-TC-RT-FY; 73070-TC-RT-FY; 73110-TC-RT-FY; 73130-TC-RT-FY; 73523-TC-FY; 73560-TC-RT-FY; 73700-TC-RT; 80048; 80053; 82550; 82962; 83735; 84100; 84484; 85025; 85027; 85610; 86850; 86900; 86901; 93005; 93010; 93306-TC; 93880-TC; 97116-GP; 97162-GP; 99285-25; G0378; J0131; J7030

== ENCOUNTER 2020-10-11 23:52 | Emergency (ER) | payer OTHER ==
[2020-10-12 00:13] VITALS: TEMP 98.4; BMI 22.4
[2020-10-12] MEDS ORDERED: LIDOCAINE 5% TOPICAL PATCH TP ONE ×2 (01:33→02:03)
[2020-10-12] MEDS ORDERED: ACETAMINOPHEN 325 MG TABLET (FP) PO ONE (01:33)
[2020-10-12] MEDS ORDERED: ACETAMINOPHEN 325 MG TABLET (FP) ONE (01:47)
[2020-10-12] MEDS ORDERED: LIDOCAINE 5% TOPICAL PATCH ONE ×2 (01:48→02:03)
[2020-10-12 02:02] LABS: BASO % 1.4 % (0-2.0); HEMATOCRIT 38.4 % (35.4-49); HEMOGLOBIN 12.4 GM/dL (11.7-16.9); MCH 31.1 pg (25.7-33.7); MCHC 32.3 g/dl (32.0-35.9); MEAN CELL VOLUME 96.1 fl (80-96); MEAN PLT VOLUME 8.4 fl (7.5-11.1); MONO % 7.8 % (3.8-10.2); NEUT % 69.8 % (42.8-82.8); RDW 14.5 % (11.9-15.9); WHITE BLOOD COUNT 11.1 K/mm3 (4.0-10.0)
[2020-10-12 02:21] LABS: CHLORIDE 109 mmol/L (98-107); SODIUM 135 mmol/L (136-145)
[2020-10-12 02:23] LABS: ALBUMIN 3.3 g/dl (3.4-5.0); BLOOD UREA NITROGEN 30.4 mg/dL (7-18); CALCIUM 8.8 mg/dL (8.5-10.1); CO2 22 mmol/L (21-32)
[2020-10-12 02:24] LABS: GLUCOSE,RANDOM 156 mg/dL (74-106)
[2020-10-12 02:26] LABS: SGPT/ALT 32 U/L (13-61)
[2020-10-12 02:27] LABS: CREATININE 1.7 mg/dL (0.55-1.3); SGOT/AST 66 U/L (15-37)
[2020-10-12 02:28] LABS: BILIRUBIN,TOTAL 0.6 mg/dL (0.2-1); TOT PROT 7.2 g/dl (6.4-8.2)
[2020-10-12 02:31] LABS: ALK PHOS 71 U/L (45-117)
[2020-10-12 02:36] LABS: ANION GAP 4 MMOL/L (8-16); POTASSIUM 6.1 mmol/L (3.5-5.1)
[2020-10-12 02:43] LABS: URINE APPEARANCE CLEAR; URINE BILIRUBIN NEGATIVE (NEGATIVE); URINE COLOR YELLOW; URINE GLUCOSE (UA) NEGATIVE (NEGATIVE); URINE KETONE NEGATIVE (NEGATIVE); URINE LEUK ESTERASE NEGATIVE (NEGATIVE); URINE NITRITE NEGATIVE (NEGATIVE); URINE PROTEIN NEGATIVE (NEGATIVE)
[2020-10-12 02:45] LABS: PLATELET COUNT 264 K/MM3 (134-434)
[2020-10-12 02:46] LABS: PLATELET ESTIMATE ADEQUATE
[2020-10-12 05:05] LABS: ALBUMIN 3.4 g/dl (3.4-5.0); BLOOD UREA NITROGEN 30.9 mg/dL (7-18)
[2020-10-12 05:08] LABS: CREATININE 1.6 mg/dL (0.55-1.3)
[2020-10-12 05:10] LABS: BILIRUBIN,TOTAL 0.5 mg/dL (0.2-1); TOT PROT 6.9 g/dl (6.4-8.2)
[2020-10-12 05:49] VITALS: BP 133/81; PULSE 71
[2020-10-12] MEDS ORDERED: LIDOCAINE PATCH REMOVAL MC SCH (22:00)
== END 2020-10-12 05:50 | disposition home or self-care (01) ==
LOC: JER 23:52
DX: M54.6 Pain in thoracic spine (principal); R30.9 Painful micturition, unspecified
CPT/HCPCS: 36415; 72070-TC-FY; 80053; 81003; 85025; 87086; 99284-25

== ENCOUNTER 2020-10-17 15:34 | Emergency (ER) | payer OTHER ==
[2020-10-17 15:42] VITALS: BP 152/79; PULSE 71; TEMP 98.3; BMI 25.7
[2020-10-17] MEDS ORDERED: ACETAMINOPHEN 325 MG TABLET (FP) PO ONE (16:27)
[2020-10-17] MEDS ORDERED: LIDOCAINE 5% TOPICAL PATCH TP ONE (16:27)
[2020-10-17] MEDS ORDERED: CYCLOBENZAPRINE HCL 10 MG TABLET (FP) PO ONE (16:27)
[2020-10-17] MEDS ORDERED: CYCLOBENZAPRINE HCL 10 MG TABLET (FP) ONE (16:55)
[2020-10-17] MEDS ORDERED: LIDOCAINE 5% TOPICAL PATCH ONE (16:55)
[2020-10-17] MEDS ORDERED: ACETAMINOPHEN 500 MG TABLET (FP) ONE (16:56)
== END 2020-10-17 17:08 | disposition home or self-care (01) ==
LOC: JERFT 15:34
DX: M54.6 Pain in thoracic spine (principal)
CPT/HCPCS: 99284-25

== ENCOUNTER 2021-02-27 17:33 | Observation (INO) | payer OTHER ==
[2021-02-27 17:44] VITALS: BMI 24.4
[2021-02-27] MEDS ORDERED: SODIUM CHLORIDE 0.9% 500 ML INFUS.BAG IV ONE (18:34)
[2021-02-27] MEDS ORDERED: LORazepam 2 MG/ML SDV VIAL ONE (18:43)
[2021-02-27] MEDS ORDERED: LORazepam 2 MG/ML SDV VIAL IVPUSH ONE (18:45)
[2021-02-27 19:01] LABS: BASO % 0.5 % (0-2.0); EOS % 2.1 % (0-4.5); HEMOGLOBIN 12.2 GM/dL (11.7-16.9); LYMPH % 18.7 % (8-40); MCH 31.6 pg (25.7-33.7); MCHC 33.8 g/dl (32.0-35.9); MEAN CELL VOLUME 93.4 fl (80-96); MEAN PLT VOLUME 7.6 fl (7.5-11.1); MONO % 6.7 % (3.8-10.2); PLATELET COUNT 272 10^3/uL (134-434); RBC 3.86 M/mm3 (4.00-5.60); RDW 14.1 % (11.9-15.9); WHITE BLOOD COUNT 7.8 K/mm3 (4.0-10.0)
[2021-02-27 19:18] LABS: CALCIUM 8.7 mg/dL (8.5-10.1)
[2021-02-27 19:19] LABS: ALBUMIN 3.4 g/dl (3.4-5.0); MAGNESIUM 1.9 mg/dL (1.8-2.4)
[2021-02-27 19:22] LABS: CREATININE 1.7 mg/dL (0.55-1.3)
[2021-02-27 19:23] LABS: BILIRUBIN,TOTAL 0.4 mg/dL (0.2-1)
[2021-02-27 19:24] LABS: TOT PROT 7.1 g/dl (6.4-8.2)
[2021-02-27] MEDS ORDERED: levETIRAcetam 500 MG TABLET (FP) PO ONE ×2 (20:29→20:31)
[2021-02-27] MEDS ORDERED: TAMSULOSIN HCL 0.4 MG CAP ONE (21:17)
[2021-02-27] MEDS ORDERED: TAMSULOSIN HCL 0.4 MG CAP PO ONE (21:19)
[2021-02-27] MEDS ORDERED: ACETAMINOPHEN 1000 MG/100 ML VIAL (NON FORMULARY) IVPB ONE (21:39)
[2021-02-27] MEDS ORDERED: ACETAMINOPHEN INJECTION 100 ML IVPB ONE (21:43)
[2021-02-28] MEDS: HEPARIN NA (PORCINE) 5,000 UNITS/ML 1ML VIAL SQ SCH ×2 (06:32→17:02)
[2021-02-28 06:50] LABS: HEMATOCRIT 34.4 % (35.4-49); HEMOGLOBIN 11.9 GM/dL (11.7-16.9); MCH 32.3 pg (25.7-33.7); MCHC 34.5 g/dl (32.0-35.9); MEAN CELL VOLUME 93.5 fl (80-96); MEAN PLT VOLUME 7.7 fl (7.5-11.1); PLATELET COUNT 236 10^3/uL (134-434); RBC 3.67 M/mm3 (4.00-5.60); RDW 14.2 % (11.9-15.9); WHITE BLOOD COUNT 9.6 K/mm3 (4.0-10.0)
[2021-02-28 07:08] LABS: CALCIUM 8.2 mg/dL (8.5-10.1)
[2021-02-28 07:09] LABS: ALBUMIN 3.3 g/dl (3.4-5.0); BLOOD UREA NITROGEN 30.2 mg/dL (7-18); MAGNESIUM 1.8 mg/dL (1.8-2.4)
[2021-02-28 07:12] LABS: CREATININE 1.5 mg/dL (0.55-1.3); PHOSPHOROUS 2.8 mg/dL (2.5-4.9)
[2021-02-28 07:13] LABS: BILIRUBIN,TOTAL 1.2 mg/dL (0.2-1); TOT PROT 6.7 g/dl (6.4-8.2)
[2021-02-28] MEDS ORDERED: HYDROCHLOROTHIAZIDE 12.5 MG CAPSULE (FP) PO SCH (10:00)
[2021-02-28] MEDS ORDERED: levETIRAcetam 500 MG TABLET (FP) PO ONE (10:50)
[2021-02-28] MEDS ORDERED: ASPIRIN 81 MG CHEWABLE TABLETS ONE (10:50)
[2021-02-28] MEDS ORDERED: PT OWN MED DRAWER 7, Y5N ONE (10:51)
[2021-02-28] MEDS ORDERED: HYDROCHLOROTHIAZIDE 25 MG TABLET (FP) ONE (10:51)
[2021-02-28] MEDS: INSULIN SLIDING SCALE (NOVOLOG) 1 VIAL SQ SCH ×2 (11:22→17:02)
[2021-02-28] MEDS: HYDROCHLOROTHIAZIDE 12.5 MG CAPSULE (FP) PO SCH ×2 (11:22→12:19)
[2021-02-28] MEDS: ASPIRIN 81 MG CHEWABLE TABLETS PO SCH (12:18)
[2021-02-28] MEDS: levETIRAcetam 500 MG TABLET (FP) PO SCH (12:18)
[2021-02-28] MEDS ORDERED: HEPARIN NA (PORCINE) 5,000 UNITS/ML 1ML VIAL ONE (16:54)
[2021-02-28 20:07] LABS: EPI CELLS 3 /uL (0-25.1); HYALINE CASTS 1 /uL (0-3.1); URINE APPEARANCE CLEAR; URINE BACTERIA 35 /uL (0-1359); URINE BILIRUBIN NEGATIVE (NEGATIVE); URINE COLOR YELLOW; URINE GLUCOSE (UA) TRACE (NEGATIVE); URINE KETONE NEGATIVE (NEGATIVE); URINE LEUK ESTERASE NEGATIVE (NEGATIVE); URINE NITRITE NEGATIVE (NEGATIVE); URINE PROTEIN NEGATIVE (NEGATIVE); URINE RBC 17 /uL (0-23.9); URINE UROBILINOGEN 0.2 mg/dL (0.2-1.0); URINE WBC 4 /uL (0-25.8)
[2021-02-28] MEDS ORDERED: LISINOPRIL 10 MG TABLET PO SCH (22:00)
[2021-03-01] MEDS: HEPARIN NA (PORCINE) 5,000 UNITS/ML 1ML VIAL SQ SCH ×3 (01:07→14:14)
[2021-03-01] MEDS: levETIRAcetam 500 MG TABLET (FP) PO SCH ×2 (01:08→09:57)
[2021-03-01] MEDS: INSULIN SLIDING SCALE (NOVOLOG) 1 VIAL SQ SCH ×3 (01:08→11:50)
[2021-03-01] MEDS: HYDROCHLOROTHIAZIDE 12.5 MG CAPSULE (FP) PO SCH (06:06)
[2021-03-01 08:41] LABS: BASO % 1.1 % (0-2.0); EOS % 6.1 % (0-4.5); HEMOGLOBIN 11.8 GM/dL (11.7-16.9); LYMPH % 13.4 % (8-40); MCHC 34.7 g/dl (32.0-35.9); MEAN CELL VOLUME 92.3 fl (80-96); MEAN PLT VOLUME 7.6 fl (7.5-11.1); MONO % 7.2 % (3.8-10.2); NEUT % 72.2 % (42.8-82.8); PLATELET COUNT 204 10^3/uL (134-434); RBC 3.68 M/mm3 (4.00-5.60); RDW 13.6 % (11.9-15.9); WHITE BLOOD COUNT 7.8 K/mm3 (4.0-10.0)
[2021-03-01 08:57] LABS: CHOLESTEROL 115 mg/dL (50-200); LDL CHOLESTEROL (ONLY SJRH) 45 mg/dL (5-100); TRIGLYCERIDES 91 mg/dL (0-150)
[2021-03-01 09:00] LABS: HDL CHOLESTEROL 53 mg/dL (40-60)
[2021-03-01] MEDS: ASPIRIN 81 MG CHEWABLE TABLETS PO SCH (09:57)
[2021-03-01 14:46] VITALS: BP 122/70; PULSE 78; TEMP 97.9
== END 2021-03-01 18:00 | disposition home or self-care (01) ==
LOC: JER 17:33 → JERBED 21:39 → INTOOBSV 21:39 → J4S 03-01 00:18
PROVIDERS: ADMIT Internal Medicine; ATTEND Internal Medicine
PROC: 3E023GC Introduction of Other Therapeutic Substance into Muscle, Percutaneous Approach (ICD-10-PCS; principal; 2021-02-27)
PROC: 3E033NZ Introduction of Analgesics, Hypnotics, Sedatives into Peripheral Vein, Percutaneous Approach (ICD-10-PCS; 2021-02-27)
PROC: 3E013VG Introduction of Insulin into Subcutaneous Tissue, Percutaneous Approach (ICD-10-PCS; 2021-02-27)
PROC: 3E0337Z Introduction of Electrolytic and Water Balance Substance into Peripheral Vein, Percutaneous Approach (ICD-10-PCS; 2021-02-27)
DX: I12.9 Hypertensive chronic kidney disease with stage 1 through stage 4 chronic kidney disease, or unspecified chronic kidney disease (principal); I25.10 Atherosclerotic heart disease of native coronary artery without angina pectoris; R56.9 Unspecified convulsions; I69.351 Hemiplegia and hemiparesis following cerebral infarction affecting right dominant side; E11.22 Type 2 diabetes mellitus with diabetic chronic kidney disease; R47.02 Dysphasia; R25.1 Tremor, unspecified; R50.9 Fever, unspecified; H54.40 Blindness, one eye, unspecified eye; N40.0 Benign prostatic hyperplasia without lower urinary tract symptoms
CPT/HCPCS: 36415; 70450-TC; 70551-TC; 71045-TC-FY; 80053; 80061; 81003; 82962; 83036; 83605; 83735; 84100; 84443; 85025; 85027; 87040; 87086; 87804; 93005; 93010; 93880-TC; 95816; 96361; 96372; 96374; 96375; 99285-25; C9803; G0378; J0131; J1644; U0003; U0005

== ENCOUNTER 2021-03-07 09:32 | Inpatient (IN) | payer OTHER ==
[2021-03-07 10:37] VITALS: BMI 24.4
[2021-03-07] MEDS: SODIUM CHLORIDE 1,000 ML IV SCH ×2 (10:45→19:58)
[2021-03-07 11:31] LABS: EOS % 2.3 % (0-4.5); HEMATOCRIT 38.4 % (35.4-49); LYMPH % 10.6 % (8-40); MCH 31.3 pg (25.7-33.7); MCHC 33.9 g/dl (32.0-35.9); MEAN CELL VOLUME 92.4 fl (80-96); MONO % 5.8 % (3.8-10.2); NEUT % 80.3 % (42.8-82.8); PLATELET COUNT 292 10^3/uL (134-434); RBC 4.15 M/mm3 (4.00-5.60); RDW 13.4 % (11.9-15.9); WHITE BLOOD COUNT 9.4 K/mm3 (4.0-10.0)
[2021-03-07 11:42] LABS: INR 1.09 (0.83-1.09); PROTHROMBIN TIME (PATIENT) 13.1 SEC (9.7-13.0)
[2021-03-07 11:44] LABS: ACTIVATED PTT 30.4 SECONDS (25.2-36.5)
[2021-03-07 11:49] LABS: CHLORIDE 106 mmol/L (98-107); SODIUM 135 mmol/L (136-145)
[2021-03-07 11:51] LABS: CALCIUM 8.9 mg/dL (8.5-10.1)
[2021-03-07 11:52] LABS: ALBUMIN 3.2 g/dl (3.4-5.0); CO2 20 mmol/L (21-32); GLUCOSE,RANDOM 192 mg/dL (74-106)
[2021-03-07 11:55] LABS: CREATININE 2.1 mg/dL (0.55-1.3); SGOT/AST 38 U/L (15-37); SGPT/ALT 38 U/L (13-61); TRIGLYCERIDES 142 mg/dL (0-150)
[2021-03-07 11:56] LABS: CHOLESTEROL 128 mg/dL (50-200); LDL CHOLESTEROL (ONLY SJRH) 75 mg/dL (5-100)
[2021-03-07 11:57] LABS: HDL CHOLESTEROL 33 mg/dL (40-60); TOT PROT 7.4 g/dl (6.4-8.2)
[2021-03-07 11:58] LABS: ALK PHOS 119 U/L (45-117)
[2021-03-07 12:35] LABS: ANION GAP 9 MMOL/L (8-16); BLOOD UREA NITROGEN 66.2 mg/dL (7-18)
[2021-03-07] MEDS ORDERED: ACETAMINOPHEN 500 MG TABLET (FP) PO ONE (13:08)
[2021-03-07 13:38] LABS: VENOUS BASE EXCESS -5.9 mmol/L (-2-2); VENOUS O2 SATURATION 74.7 % (70-80); VENOUS PCO2 31.6 mmHg (38-52); VENOUS PH 7.378 (7.310-7.410)
[2021-03-07 13:57] LABS: URINE APPEARANCE CLEAR; URINE BILIRUBIN NEGATIVE (NEGATIVE); URINE COLOR YELLOW; URINE GLUCOSE (UA) NEGATIVE (NEGATIVE); URINE KETONE TRACE (NEGATIVE); URINE LEUK ESTERASE NEGATIVE (NEGATIVE); URINE NITRITE NEGATIVE (NEGATIVE); URINE PROTEIN NEGATIVE (NEGATIVE); URINE UROBILINOGEN 0.2 mg/dL (0.2-1.0)
[2021-03-07 13:58] LABS: BLOOD UREA NITROGEN 66.7 mg/dL (7-18)
[2021-03-07] MEDS ORDERED: ACETAMINOPHEN 325 MG TABLET (FP) ONE (14:01)
[2021-03-07] MEDS: INSULIN SLIDING SCALE (NOVOLOG) 1 VIAL SQ SCH ×2 (19:52→21:16)
[2021-03-07] MEDS ORDERED: INSULIN (NOVOLOG) ASPART 100 UNITS/ML 10ML VIAL ONE (21:03)
[2021-03-07] MEDS: ATORVASTATIN CA 40 MG TABLET (FP) PO SCH (21:08)
[2021-03-07] MEDS: TAMSULOSIN HCL 0.4 MG CAP PO SCH (21:08)
[2021-03-07] MEDS: LISINOPRIL 10 MG TABLET PO SCH (21:09)
[2021-03-07] MEDS: levETIRAcetam 500 MG TABLET (FP) PO SCH (21:09)
[2021-03-07] MEDS: HEPARIN NA (PORCINE) 5,000 UNITS/ML 1ML VIAL SQ SCH (21:10)
[2021-03-08] MEDS: HEPARIN NA (PORCINE) 5,000 UNITS/ML 1ML VIAL SQ SCH ×3 (05:57→21:39)
[2021-03-08] MEDS: INSULIN SLIDING SCALE (NOVOLOG) 1 VIAL SQ SCH ×4 (05:59→21:39)
[2021-03-08] MEDS: HYDROCHLOROTHIAZIDE 12.5 MG CAPSULE (FP) PO SCH (05:59)
[2021-03-08] MEDS ORDERED: INSULIN (NOVOLOG) ASPART 100 UNITS/ML 10ML VIAL ONE ×3 (06:23→21:15)
[2021-03-08 07:24] LABS: BASO % 0.9 % (0-2.0); EOS % 2.2 % (0-4.5); HEMATOCRIT 35.2 % (35.4-49); HEMOGLOBIN 12.2 GM/dL (11.7-16.9); LYMPH % 15.5 % (8-40); MCHC 34.6 g/dl (32.0-35.9); MEAN CELL VOLUME 92.5 fl (80-96); MEAN PLT VOLUME 7.7 fl (7.5-11.1); MONO % 5.7 % (3.8-10.2); NEUT % 75.7 % (42.8-82.8); PLATELET COUNT 284 10^3/uL (134-434); RBC 3.81 M/mm3 (4.00-5.60); RDW 13.5 % (11.9-15.9); WHITE BLOOD COUNT 7.6 K/mm3 (4.0-10.0)
[2021-03-08 07:45] LABS: BLOOD UREA NITROGEN 55.8 mg/dL (7-18); CALCIUM 8.3 mg/dL (8.5-10.1); MAGNESIUM 2.3 mg/dL (1.8-2.4)
[2021-03-08 07:46] LABS: ALBUMIN 2.9 g/dl (3.4-5.0)
[2021-03-08 07:49] LABS: CREATININE 1.5 mg/dL (0.55-1.3)
[2021-03-08 07:50] LABS: BILIRUBIN,TOTAL 0.8 mg/dL (0.2-1); TOT PROT 6.6 g/dl (6.4-8.2)
[2021-03-08 07:51] LABS: PHOSPHOROUS 3.6 mg/dL (2.5-4.9)
[2021-03-08] MEDS: ASPIRIN 81 MG CHEWABLE TABLETS PO SCH (09:48)
[2021-03-08] MEDS: PANTOPRAZOLE 40 MG TABLET PO SCH (09:48)
[2021-03-08] MEDS: levETIRAcetam 500 MG TABLET (FP) PO SCH (09:49)
[2021-03-08] MEDS ORDERED: LORazepam 2 MG/ML SDV VIAL IVPUSH ONE ×2 (14:13→15:00)
[2021-03-08] MEDS ORDERED: OXcarbazepine 300 MG/5 ML UNIT DOSE CUPS PO SCH (14:15)
[2021-03-08] MEDS ORDERED: PT OWN MED DRAWER 7, Y5N ONE (15:48)
[2021-03-08] MEDS ORDERED: LORazepam 2 MG/ML SDV VIAL IVPUSH PRN (16:32)
[2021-03-08] MEDS: SODIUM CHLORIDE 1,000 ML IV SCH (17:04)
[2021-03-08] MEDS: TAMSULOSIN HCL 0.4 MG CAP PO SCH (21:38)
[2021-03-08] MEDS: ATORVASTATIN CA 40 MG TABLET (FP) PO SCH (21:38)
[2021-03-08] MEDS: LISINOPRIL 10 MG TABLET PO SCH (21:38)
[2021-03-09] MEDS: INSULIN SLIDING SCALE (NOVOLOG) 1 VIAL SQ SCH ×4 (06:15→21:50)
[2021-03-09] MEDS: HYDROCHLOROTHIAZIDE 12.5 MG CAPSULE (FP) PO SCH (06:15)
[2021-03-09] MEDS: HEPARIN NA (PORCINE) 5,000 UNITS/ML 1ML VIAL SQ SCH ×3 (06:15→21:50)
[2021-03-09] MEDS ORDERED: OXcarbazepine 300 MG/5 ML UNIT DOSE CUPS PO SCH (08:00)
[2021-03-09] MEDS: OXcarbazepine 150 MG TABLET (UD) PO SCH ×2 (09:42→21:50)
[2021-03-09] MEDS: ASPIRIN 81 MG CHEWABLE TABLETS PO SCH (09:42)
[2021-03-09] MEDS: PANTOPRAZOLE 40 MG TABLET PO SCH (09:42)
[2021-03-09] MEDS: SODIUM CHLORIDE 1,000 ML IV SCH (14:39)
[2021-03-09] MEDS ORDERED: ACETAMINOPHEN 325 MG TABLET (FP) PO ONE (16:36)
[2021-03-09] MEDS ORDERED: PT OWN MED DRAWER 7, Y5N ONE (21:08)
[2021-03-09] MEDS: ATORVASTATIN CA 40 MG TABLET (FP) PO SCH (21:50)
[2021-03-09] MEDS: LISINOPRIL 10 MG TABLET PO SCH (21:50)
[2021-03-09] MEDS: TAMSULOSIN HCL 0.4 MG CAP PO SCH (21:50)
[2021-03-10] MEDS: HYDROCHLOROTHIAZIDE 12.5 MG CAPSULE (FP) PO SCH (06:08)
[2021-03-10] MEDS: INSULIN SLIDING SCALE (NOVOLOG) 1 VIAL SQ SCH (06:11)
[2021-03-10] MEDS: HEPARIN NA (PORCINE) 5,000 UNITS/ML 1ML VIAL SQ SCH (06:11)
[2021-03-10 08:13] LABS: BASO % 2.3 % (0-2.0); EOS % 5.2 % (0-4.5); HEMATOCRIT 34.7 % (35.4-49); HEMOGLOBIN 11.9 GM/dL (11.7-16.9); LYMPH % 19.6 % (8-40); MCH 31.8 pg (25.7-33.7); MCHC 34.2 g/dl (32.0-35.9); MEAN CELL VOLUME 92.8 fl (80-96); MEAN PLT VOLUME 8.1 fl (7.5-11.1); NEUT % 65.9 % (42.8-82.8); PLATELET COUNT 323 10^3/uL (134-434); RBC 3.74 M/mm3 (4.00-5.60); RDW 13.4 % (11.9-15.9); WHITE BLOOD COUNT 8.7 K/mm3 (4.0-10.0)
[2021-03-10 08:39] LABS: CALCIUM 8.1 mg/dL (8.5-10.1)
[2021-03-10 08:40] LABS: BLOOD UREA NITROGEN 32.3 mg/dL (7-18); MAGNESIUM 2.1 mg/dL (1.8-2.4)
[2021-03-10 08:42] LABS: CREATININE 1.5 mg/dL (0.55-1.3)
[2021-03-10 08:46] LABS: PHOSPHOROUS 2.9 mg/dL (2.5-4.9)
[2021-03-10 09:54] VITALS: BP 155/95; PULSE 89; TEMP 98.4
[2021-03-10] MEDS ORDERED: PT OWN MED DRAWER 7, Y5N ONE (10:35)
[2021-03-10] MEDS: SODIUM CHLORIDE 1,000 ML IV SCH (10:44)
[2021-03-10] MEDS: ASPIRIN 81 MG CHEWABLE TABLETS PO SCH (10:44)
[2021-03-10] MEDS: PANTOPRAZOLE 40 MG TABLET PO SCH (10:45)
[2021-03-10] MEDS: OXcarbazepine 150 MG TABLET (UD) PO SCH (10:45)
== END 2021-03-10 18:00 | disposition home or self-care (01) | DRG 101 ==
LOC: JER 09:32 → JERBED 15:11 → OBSVTOIN 15:47 → J4W 18:40
PROVIDERS: ADMIT Internal Medicine; ATTEND Internal Medicine
DX: G40.909 Epilepsy, unspecified, not intractable, without status epilepticus (principal); I69.351 Hemiplegia and hemiparesis following cerebral infarction affecting right dominant side; N17.9 Acute kidney failure, unspecified; I10 Essential (primary) hypertension; E78.5 Hyperlipidemia, unspecified; E11.9 Type 2 diabetes mellitus without complications; E87.5 Hyperkalemia; I12.9 Hypertensive chronic kidney disease with stage 1 through stage 4 chronic kidney disease, or unspecified chronic kidney disease; N18.9 Chronic kidney disease, unspecified; E11.22 Type 2 diabetes mellitus with diabetic chronic kidney disease; I45.10 Unspecified right bundle-branch block; R13.10 Dysphagia, unspecified; K21.9 Gastro-esophageal reflux disease without esophagitis; K22.70 Barrett's esophagus without dysplasia; K44.9 Diaphragmatic hernia without obstruction or gangrene; I65.29 Occlusion and stenosis of unspecified carotid artery; G93.89 Other specified disorders of brain
CPT/HCPCS: 36415; 70450-TC; 71045-TC-FY; 73523-TC-FY; 80048; 80053; 80061; 80177; 81003; 82550; 82553; 82803; 82962; 83735; 84100; 84484; 85025; 85610; 85730; 86850; 86900; 86901; 87086; 87804; 93005; 93010; 99285-25; C9803; G0378; J1644; U0003; U0005

== ENCOUNTER 2021-05-04 08:27 | Inpatient (IN) | payer OTHER ==
[2021-05-04 09:14] VITALS: TEMP 98.5; BMI 25.1
[2021-05-04 10:21] LABS: BASO % 1.2 % (0-2.0); EOS % 1.1 % (0-4.5); HEMATOCRIT 36.1 % (35.4-49); HEMOGLOBIN 12.3 GM/dL (11.7-16.9); LYMPH % 7.9 % (8-40); MCH 31.4 pg (25.7-33.7); MEAN CELL VOLUME 92.2 fl (80-96); MEAN PLT VOLUME 7.7 fl (7.5-11.1); MONO % 4.5 % (3.8-10.2); NEUT % 85.3 % (42.8-82.8); PLATELET COUNT 283 10^3/uL (134-434); RBC 3.92 M/mm3 (4.00-5.60); RDW 14.1 % (11.9-15.9); WHITE BLOOD COUNT 9.6 K/mm3 (4.0-10.0)
[2021-05-04 10:31] LABS: CHLORIDE 106 mmol/L (98-107); SODIUM 137 mmol/L (136-145)
[2021-05-04 10:35] LABS: BLOOD UREA NITROGEN 19.9 mg/dL (7-18); CO2 22 mmol/L (21-32); GLUCOSE,RANDOM 179 mg/dL (74-106)
[2021-05-04 10:36] LABS: ALBUMIN 3.1 g/dl (3.4-5.0); ANION GAP 9 MMOL/L (8-16); CALCIUM 8.6 mg/dL (8.5-10.1)
[2021-05-04 10:37] LABS: MAGNESIUM 1.6 mg/dL (1.8-2.4)
[2021-05-04 10:39] VITALS: BP 155/58; PULSE 63
[2021-05-04 10:39] LABS: CREATININE 1.5 mg/dL (0.55-1.3); SGOT/AST 25 U/L (15-37); SGPT/ALT 34 U/L (13-61)
[2021-05-04 10:40] LABS: BILIRUBIN,TOTAL 0.5 mg/dL (0.2-1); TOT PROT 7.2 g/dl (6.4-8.2)
[2021-05-04 10:42] LABS: ALK PHOS 146 U/L (45-117)
[2021-05-04 10:48] LABS: URINE APPEARANCE CLEAR; URINE BILIRUBIN NEGATIVE (NEGATIVE); URINE COLOR YELLOW; URINE GLUCOSE (UA) 1+ (NEGATIVE); URINE KETONE NEGATIVE (NEGATIVE); URINE LEUK ESTERASE NEGATIVE (NEGATIVE); URINE NITRITE NEGATIVE (NEGATIVE); URINE PROTEIN TRACE (NEGATIVE); URINE UROBILINOGEN 0.2 mg/dL (0.2-1.0)
== END 2021-05-04 15:11 | disposition left against medical advice (07) | DRG 101 ==
LOC: JER 08:27 → JERBED 11:06
PROVIDERS: ADMIT Internal Medicine; ATTEND Internal Medicine
DX: G40.909 Epilepsy, unspecified, not intractable, without status epilepticus (principal); I69.351 Hemiplegia and hemiparesis following cerebral infarction affecting right dominant side; I10 Essential (primary) hypertension; E11.9 Type 2 diabetes mellitus without complications; I69.320 Aphasia following cerebral infarction
CPT/HCPCS: 36415; 70450-TC; 71045-TC-FY; 72125-TC; 80053; 80183; 81003; 82550; 83605; 83735; 84443; 84484; 85025; 87086; 87186; 93005; 93010; 99285-25; C9803; U0003; U0005